=== PATIENT | female | born 1960 | race Caucasian/White ===

== ENCOUNTER → 2016-10-15 | Outpatient (CLI) | payer OTHER ==
[~2016-10-15] VITALS: Ht 157.5 cm; Wt 74.4 kg
[~2016-10-15] MED LIST: ALEVE220 MG PO; ALPRAZOLAM 0.50.5 M1 PO; AMLODIPINE BESYL5 M1 PO; AMOX TR-K CLV1 EAC4 PO; BENADRYL ALLERG25 MG PO; CLIMARA PRO PA1 EACH TP; CLONAZEPAM 0.50.5 M1 PO; CYMBALTA30 MG PO; CYMBALTA60 MG PO; DEXILANT60 MG PO; ELAVIL PO; FLONASE 0.05%50 MCG NASAL; FLONASE NS; FLUOXETINE HCL40 MG PO; HYDROCODONE-AP1 EAC6 PO; IBUPROFEN200 M1 PO; INTRAT INTRATHECA; LIPITOR 20 MG T20 M1 PO; MS CONTIN15 MG PO; NAPROSYN500 MG PO; NORTRIPTYLINE H75 M2 PO; OPANA10 MG PO; OTHER MISCELL; OXYCODON-ACETA1 EAC1 PO; OXYCODONE HCL15 MG PO; OXYCODONE-APAP1 EAC6 PO; PATANASE30.5 GM NS; PAXIL10 MG PO; PENICILLIN VK500 M1 PO; PHENERGAN 25 MG25 M1 PO; PROZAC20 MG PO; ROXICODONE15 M1; TIZANIDINE HCL4 MG PO; TRAZODONE PO; XANAX 0.5 MG0.5 M1 PO; ZANTAC 150MG T150 MG PO; ZESTORETIC 20-1 EAC1 PO; ZOCOR20 MG PO; ZPAK PO; hydromorphone IMPLANT
--- NOTE | ~2016-10-15 | HPC ---
[facility] [address] [place] [address] PAIN MANAGEMENT CONSULTATION Name: THIAGO BUCK Room #: REG EDWIN Rosendo.#: [id number] Admission: 10/15/16 Attend Phys: Maximus Schmitt MD Discharge: Date of : 56 Report #: [id number] THIS REPORT FOR: //name// CC: Maximus SPRAGUE Followup visit for management of intrathecal infusion pump chronic intractable pain. The patient returns to pain clinic today and her affect, her mood and her pain are 180 degrees from her last visit. When I last saw her 3 months ago she cried through the entire visit. We talked and I counseled her for some time. She has been having significant difficulties with family, particularly daughter, she confided yesterday that she has been in custodial and has addiction issues. The patient lives with her , but is otherwise socially isolated. She has trouble with transportation, finances and depression. She has reported to us that changes in medication have made a difference. I started her on paroxetine and it has been doubled and I think that dose is quite good right now given her improvement in mood and depression. She does not appear depressed at all today. She reports her pain is better. She does not need additional medication when using her breakthrough hydrocodone cautiously along with her pump. She takes tizanidine only at bedtime to help with muscle spasm and sleep. Paxil is now at 20 mg b.i.d., naproxen sodium p.r.n., ranitidine, fluticasone, simvastatin, amlodipine, clonazepam, estradiol, Climara patch, lisinopril, hydrochlorothiazide, ALLERGIES: None. PHYSICAL EXAMINATION: GENERAL: Her affect again is positive, pleasant. HEENT: Her eyes are sharp and clear. There has been as mentioned 180 degree change in her aspect since her last visit. VITAL SIGNS: Her blood pressure is 183/69, heart rate 72, respirations 20, oxygen saturation 98%. LUNGS: She has some mild expiratory wheezing. She does not smell of tobacco today and reports that she is significantly reduced her tobacco use. EXTREMITIES: She has significant pain in her right hip with internal and external rotation. There is positive ANALISA reproducing pain into the groin and anterior thigh. Sensation below the knee is intact. There does not appear to be radiculopathy here. Pump is in the left back as placed by Dr. Arellano and is nontender. IMPRESSION: 1. Chronic intractable pain status post laminectomy with history of radiculopathy, which is now well managed. 2. Osteoarthritis, right hip. This will be followed up by orthopedic surgery. [address] [address] PAIN MANAGEMENT CONSULTATION Name: THIAGO BUCK Room #: REG [facility] Rosendo.#: [id number] Admission: 10/15/16 Attend Phys: Maximus Schmitt MD Discharge: Date of : 56 Report #: [id number] 3. Severe depression. At last visit, I was extremely concerned and she has made a very good recovery today and I would say that she is in remission. 4. Obesity. 5. Management of intrathecal pump with refill. 6. Management of high risk opioid medication, low dose hydrocodone and supplement. PLAN: 1. Refill intrathecal infusion pump and reprogram. 2. Follow up for medication management as needed. PROCEDURE NOTE: The patient was placed in the supine position. Skin was prepped with ChloraPrep. Skin was anesthetized with 1% lidocaine and a 30 gauge needle. A 22-gauge non-coring needle was then advanced into the intrathecal pump. Old medication was removed and discarded. The pump was then refilled with medications hydromorphone 5.5, bupivacaine 7.4 per day, DEBORAH is 66, reservoir volume is 20, low reservoir alarm is 1.5, refill interval at 12/03/2016. There were no complications. Followup visit is planned in 1 month and a half. By: 1154 [id number] Maximus Schmitt MD /nt
[2016-10-15 09:06] VITALS: BP 183/69
== END ==
LOC: PAIN 06:53
DX: Z45.1 Encounter for adjustment and management of infusion pump (principal); G89.29 Other chronic pain; F32.9 Major depressive disorder, single episode, unspecified; M96.1 Postlaminectomy syndrome, not elsewhere classified; M16.11 Unilateral primary osteoarthritis, right hip; I10 Essential (primary) hypertension; F17.210 Nicotine dependence, cigarettes, uncomplicated

== ENCOUNTER → 2016-12-03 | Outpatient (CLI) | payer OTHER ==
[~2016-12-03] VITALS: Ht 160 cm; Wt 73.9 kg
--- NOTE | ~2016-12-03 | HPC ---
[facility] [place] [address] PAIN MANAGEMENT CONSULTATION Name: THIAGO BUCK Room #: REG EDWIN Robbins.#: [id number] Admission: 12/03/16 Attend Phys: Maximus Schmitt MD Discharge: Date of : 56 Report #: [id number] THIS REPORT FOR: //name// CC: Maximus SPRAGUE DATE OF SERVICE: 12/03/2016 Followup visit for refill of intrathecal infusion pump for chronic intractable back pain with radiculopathy post-laminectomy syndrome. The patient returns to pain clinic today for refill of her intrathecal infusion pump. She is currently receiving bupivacaine and hydromorphone. She is doing better, pain control seems much better and her emotional state is also much better. She was a mess a few visits ago. She is reconciling with her daughter. I have encouraged her to continue efforts quit smoking. She is down to 2-3 e-cigarettes per day right now, so she is making some progress towards quitting. I told her just to stop. Cold turkey seems to be the best way to go. She continues to follow for her gastroesophageal reflux disease and sinus symptoms. She has a primary physician, Dr. Andrade Sprague. Today, she reports that with pain medication, her pain score is 8/10. Her functional activity is adequate. She is able to maintain all of her activities of daily living including house work, cleaning, cooking. PHYSICAL EXAMINATION: Pleasant, blood pressure 141/70, heart rate 85. BMI is 28.9. She is able to ambulate independently without a cane or walking device. She does not appear to be a fall risk. Tenderness across her low back is noted, tenderness over her pump on the left is noted. She has pain in the right hip with internal and external rotation consistent with osteoarthritis. Straight leg raising is negative for radicular pain. IMPRESSION: 1. Chronic intractable back pain with radiculopathy, status post laminectomy. 2. Osteoarthritis, right hip. I believe she is scheduled to have her hip replaced and this should help a lot with her overall global pain. 3. Depression, stable. 4. Morbid obesity. 5. Tobaccoism. 6. Management of intrathecal infusion pump with refill. 7. Management of high risk medications under terms of an opioid agreement. I provided her with [place] 5/325 75 tablets per month, 1-3 tablets as needed for severe breakthrough pain. We reviewed the importance of safeguarding all medications and using her medications under direction, the terms of our agreement were also reviewed. [address] [address] PAIN MANAGEMENT CONSULTATION Name: THIAGO BUCK [id number] Admission: 12/03/16 Attend Phys: Maximus Schmitt MD Discharge: Date of : 56 Report #: [id number] PROCEDURE: Refill and reprogramming. Skin was prepped with ChloraPrep. Skin was anesthetized and a 22-gauge needle advanced into the pump. After aspirating the volume from the pump, I refilled the pump with medication and a reprogramming session was performed. I plan to see her back in the pain clinic in about 2 months. No changes in her medications. By: 1715 0005 Maximus Schmitt MD /nt
[2016-12-03 12:36] VITALS: BP 141/70
== END | disposition home or self-care (01) ==
LOC: PAIN 07:04
DX: M54.16 Radiculopathy, lumbar region (principal); M96.1 Postlaminectomy syndrome, not elsewhere classified; G89.29 Other chronic pain; M16.11 Unilateral primary osteoarthritis, right hip; F32.9 Major depressive disorder, single episode, unspecified; E66.01 Morbid (severe) obesity due to excess calories; F11.20 Opioid dependence, uncomplicated; Z68.28 Body mass index [BMI] 28.0-28.9, adult

== ENCOUNTER → 2017-01-20 | Outpatient (CLI) | payer OTHER ==
[~2017-01-20] VITALS: Ht 160 cm; Wt 76.5 kg
[2017-01-20 14:07] VITALS: BP 180/70
== END ==
LOC: PAIN 07:09
DX: Z45.1 Encounter for adjustment and management of infusion pump (principal); M96.1 Postlaminectomy syndrome, not elsewhere classified; M16.11 Unilateral primary osteoarthritis, right hip; F32.9 Major depressive disorder, single episode, unspecified; E66.01 Morbid (severe) obesity due to excess calories; Z79.899 Other long term (current) drug therapy

== ENCOUNTER → 2017-03-08 | Outpatient (CLI) | payer OTHER ==
[~2017-03-08] VITALS: Ht 157.5 cm; Wt 77.0 kg
--- NOTE | ~2017-03-08 | HPC ---
[facility] [address] [place] [address] PAIN MANAGEMENT CONSULTATION Name: THIAGO BUCK Room #: REG EDWIN Andrade#: [id number] Admission: 03/08/17 Attend Phys: Maximus Schmitt MD Discharge: Date of : 56 Report #: [id number] THIS REPORT FOR: //name// CC: Maximus SPRAGUE DATE OF SERVICE: 03/08/2017 DATE OF REGISTRATION: 03/08/2017. Followup visit for refill of intrathecal infusion pump. The patient returns to pain clinic today with her daughter. Her daughter has had issues in the past with addiction and has now been under treatment for nearly a year and came today to apologize to me in the past because she apparently diverted some of her mothers medication. Her daughter is going to [facility] and we had a long talk today about her recovery. This has definitely helped her mother. Her mother is much more stable and relaxed now that her daughter is back in her life and seems to be doing well. In no small measure this psychosocial component affects the patient's pain. She now has her daughter back and has her family back and her daughter is working two jobs as well as receiving ongoing counseling. The patient seems more at peace and able to manage her pain effectively. In the past, I have seen her. She is distraught, crying, pain is worse, she is smoking more; all of those things are better. Pain today still scored as an 8/10 with walking and activity, but is much more tolerable to her. Intrathecal pump medications were reviewed before refilling. In addition to the intrathecal pump, the patient uses Pilot 5/325 as breakthrough using less than 3 tablets a day on average, I provided her with 70 tablets per month. PHYSICAL EXAMINATION: GENERAL: She is pleasant, alert, oriented. No signs of overmedication, depression or anxiety. VITAL SIGNS: Her blood pressure is 145/79, heart rate 68, respirations 18. She is obese with a BMI of 31.0. MUSCULOSKELETAL: She moves from a sitting to standing position, walks with a waddling gait. She has pain and tenderness across her low back and into her hips. Both legs are associated with numbness and tingling and radiculopathy. She has retained a spinal cord stimulator which is no longer functioning in the right buttock, cheek and the intrathecal pump placed by Dr. Arellano is in the left paravertebral region, both are minimally tender. IMPRESSION: [facility] [address] [place] [address] PAIN MANAGEMENT CONSULTATION Name: THIAGO BUCK Room #: REG CLI [facility]#: [id number] Admission: 03/08/17 Attend Phys: Maximus Schmitt MD Discharge: Date of : 56 Report #: [id number] 1. Chronic low back pain with radiculopathy, post-laminectomy syndrome. 2. Osteoarthritis, right hip. 3. Depression, currently in remission. 4. Morbid obesity. 5. Continued use of tobacco, she was counseled. 6. Management of high risk medications under terms of an opioid agreement, this is Pilot 5/325 with an average daily of 12. 7. Management of intrathecal infusion pump with refill. Terms of our opioid agreement reviewed. Prescriptions were written for 3 months. Pump was refilled. PROCEDURE: Skin was prepped with ChloraPrep. Skin anesthetized and a 22-gauge non-coring needle advanced in the pump. Old medication was discarded. The pump was refilled with hydromorphone and bupivacaine. A reprogramming session was performed. Daily dose will be hydromorphone 5.8 and bupivacaine 7.8. Her alarm date is now 04/22/2017. Her reservoir alarm volume is 19.5. Her DEBORAH is 61 months. A copy of her programming information was provided and we will see her back in the pain clinic in about 2 months. <ELECTRONICALLY SIGNED> By: Maximus Schmitt MD 03/11/17 1351 0827 0950 Maximus Schmitt MD /nt
[2017-03-08 11:54] VITALS: BP 145/79
== END ==
LOC: PAIN 07:02
DX: Z45.1 Encounter for adjustment and management of infusion pump (principal); Z76.0 Encounter for issue of repeat prescription; M54.16 Radiculopathy, lumbar region; M54.5 Low back pain; M96.1 Postlaminectomy syndrome, not elsewhere classified; M16.11 Unilateral primary osteoarthritis, right hip; F32.9 Major depressive disorder, single episode, unspecified; E66.01 Morbid (severe) obesity due to excess calories; F17.200 Nicotine dependence, unspecified, uncomplicated; Z79.891 Long term (current) use of opiate analgesic; Z79.899 Other long term (current) drug therapy

== ENCOUNTER → 2017-04-19 | Outpatient (CLI) | payer OTHER ==
[~2017-04-19] VITALS: Ht 160 cm; Wt 78.3 kg
--- NOTE | ~2017-04-19 | HPC ---
[facility] [place] [place] [address] PAIN MANAGEMENT CONSULTATION Name: THIAGO BUCK Room #: REG EDWIN Robbins.#: [id number] Admission: 04/19/17 Attend Phys: Maximus Schmitt MD Discharge: Date of : 56 Report #: [id number] THIS REPORT FOR: //name// CC: Maximus Olivia MD DATE OF SERVICE: 04/19/2017 Followup visit for management of intrathecal infusion pump. The patient returns to pain clinic today for refill of her intrathecal infusion pump. Because of her high daily dose of hydromorphone or concentrations at 15 mg, we are seeing her at about 45-day intervals. She is doing well. Pain scores are 7, but she has positive upbeat functioning at a high level. She has some new pain in her right hip and is being evaluated for right hip replacement. She continues to smoke. I have given her counseling about that again today. PHYSICAL EXAMINATION: GENERAL: Her affect is pleasant and upbeat. Her daughter just recently got and she seems to be much happier with her renewed relationship with her daughter and her grandchildren. VITAL SIGNS: Her blood pressure is 188/71, heart rate 72, respirations 16. BMI 30.6. MUSCULOSKELETAL: She has kyphosis of the spine. She walks with a cane and bent over. She has a wobbly gait. She has localized pain and tenderness across the low back, pain in the right leg with positive straight leg raising suggesting radiculopathy. Examination of the right hip also reveals pain with flexion, extension, internal and external rotation. IMPRESSION: 1. Chronic back pain, post-laminectomy syndrome. 2. Osteoarthritis, right hip, severe. 3. Depression, improved. 4. Morbid obesity. 5. Tobacco abuse with chronic obstructive pulmonary disease. 6. Management of high risk medications under terms of an opioid agreement, a small amount supplementing her intrathecal pump. I provided her with [place] 5/325, #75 tablets per month. Safeguarding is necessary. Her daughter is an AA and we have talked openly with her daughter about making sure that she respects her mother's medication. PROCEDURE: Refill of intrathecal infusion pump. Skin was prepped with ChloraPrep. Skin anesthetized and a 22-gauge non-coring needle advanced in the pump. Old medication removed and discarded. Pump was [facility] [address] [place] [address] PAIN MANAGEMENT CONSULTATION Name: THIAGO BUCK Uma Room #: REG EDWIN Zafar#: [id number] Admission: 04/19/17 Attend Phys: Maximus Schmitt MD Discharge: Date of : 56 Report #: [id number] refilled with hydromorphone 15 mg/mL, bupivacaine 20 mg/mL. Reprogramming session was performed. The pump has 45 days with medication. We plan to see her back in the pain clinic and around that many days. By: 1616 0019 Maximus Schmitt MD /mary
[2017-04-19 12:58] VITALS: BP 188/71
== END | disposition home or self-care (01) ==
LOC: PAIN 07:29
DX: Z45.1 Encounter for adjustment and management of infusion pump (principal); M96.1 Postlaminectomy syndrome, not elsewhere classified; M16.11 Unilateral primary osteoarthritis, right hip; F32.9 Major depressive disorder, single episode, unspecified; E66.01 Morbid (severe) obesity due to excess calories; J44.9 Chronic obstructive pulmonary disease, unspecified; Z68.30 Body mass index [BMI] 30.0-30.9, adult; F17.200 Nicotine dependence, unspecified, uncomplicated

== ENCOUNTER → 2017-07-15 | Outpatient (CLI) | payer OTHER ==
[~2017-07-15] VITALS: Ht 160 cm; Wt 75.8 kg
--- NOTE | ~2017-07-15 | HPC ---
[facility] [address] [place] [address] PAIN MANAGEMENT CONSULTATION Name: THIAGO BUCK Room #: REG EDWIN Andrade#: [id number] Admission: 07/15/17 Attend Phys: Maximus Schmitt MD Discharge: Date of : 56 Report #: [id number] THIS REPORT FOR: //name// CC: Maximus SPRAGUE DATE OF SERVICE: 07/15/2017 Followup visit for management of intrathecal infusion pump. The patient returns to the pain clinic today with her daughter. She is here today for refill of her intrathecal infusion pump. Pain is adequately controlled currently with her infusion pump. She scores her pain today as a 7/10. This is an adequate score for her. She has been able to interact with her family and describes improvement in function. Pain is mostly in her lumbar spine, but she has some burning sensation into her legs as well. There are some features of radiculopathy. She continues to smoke. She was counseled about this today. She denies any osteoarthritis in other joints. Most of her pain is lumbosacral. In addition to her intrathecal medicines, I provided her with 60 hydrocodone 5/325 tablets for a total of 10 morphine milligram equivalents a day. CDC guidelines were reviewed. Her opioid agreement was reviewed. Periodic urine drug screening or buccal testing has been done in the past. I will continue this at my discretion. She has reduced her use of opioids over the course of the last 2 years. PHYSICAL EXAMINATION: GENERAL: She is pleasant, alert and oriented. No signs of overmedication. She is not depressed today and seems positive throughout the holidays, reports her daughter. VITAL SIGNS: Her blood pressure is 128/85, heart rate is 90 and respirations are 16. BACK: She has tenderness across her low back. Her pump is in the left lower quadrant. She has some pain noted in the right hip, which may be osteoarthritis. This should be reevaluated. Her BMI is 38.5 and she was counseled regarding weight loss. IMPRESSION: 1. Chronic back pain, post-laminectomy syndrome. 2. Probable osteoarthritis, right hip. 3. Depression, in remission. 4. Morbid obesity. 5. Tobacco abuse. 6. Management of intrathecal infusion pump. [facility] [address] [place] [address] PAIN MANAGEMENT CONSULTATION Name: THIAGO BUCKTH [facility] #: [facility] [id number] Admission: 07/15/17 Attend Phys: Maximus Schmitt MD Discharge: Date of : 56 Report #: [id number] PROCEDURE: Refill and reprogramming intrathecal pump. DESCRIPTION OF PROCEDURE: Skin was prepped with ChloraPrep. Skin anesthetized. A 22-gauge non-coring needle advanced in the pump. Old medication removed and discarded. Pump is refilled. Reprogramming session was performed and she was discharged. A copy of her programming information provided. A followup visit is planned in 3 months. By: 1621 [id number] MD ana Hill
[2017-07-15 12:46] VITALS: BP 178/80
== END | disposition home or self-care (01) ==
LOC: PAIN 06:48
DX: Z45.1 Encounter for adjustment and management of infusion pump (principal); M54.5 Low back pain; G89.29 Other chronic pain; M96.1 Postlaminectomy syndrome, not elsewhere classified; F32.89 Other specified depressive episodes; E66.01 Morbid (severe) obesity due to excess calories; F17.210 Nicotine dependence, cigarettes, uncomplicated; Z79.891 Long term (current) use of opiate analgesic; Z79.899 Other long term (current) drug therapy; Z68.38 Body mass index [BMI] 38.0-38.9, adult

== ENCOUNTER → 2017-09-06 | Outpatient (CLI) | payer OTHER ==
[~2017-09-06] VITALS: Ht 160 cm; Wt 76.2 kg
[~2017-09-06] MED LIST changes: +NORVASC5 MG PO
--- NOTE | ~2017-09-06 | HPC ---
[facility] [place] [address] PAIN MANAGEMENT CONSULTATION Name: THIAGO BUCK Room #: REG EDWIN Rosendo.#: [id number] Admission: 09/06/17 Attend Phys: Maximus Schmitt MD Discharge: Date of : 56 Report #: [id number] THIS REPORT FOR: //name// CC: Maximus SPRAGUE DATE OF SERVICE: 09/06/2017 Followup visit for low back pain with radiculopathy and management of intrathecal infusion pump. This is a followup visit for the patient who is here today for refill of her intrathecal infusion pump. Her impact pain score is 59. She is at moderate risk for opioid misuse or abuse. I provided her with small amount of systemic opioids under terms of written agreement, which have been reviewed today. She continues to smoke. She was counseled once again. She is a fall risk. She has osteoarthritis in her right hip. This continues to bother her as much as her back does. She is overweight and needs to lose weight. We have discussed this as well. She is here today with her daughter. They have patched up their differences. She seems to be in better spirits. PHYSICAL EXAMINATION: Pleasant female and morbidly obese. She moves from sitting to standing position and walks with a waddling gait. Her blood pressure is 156/68, heart rate is 74 and respirations 16. BMI is 29.8. She has tenderness across her back where she has her scar from previous surgery and her intrathecal pump placed by Dr. Arellano originally is in the lower lumbar region. It is nontender at this time. Straight leg raising is positive. IMPRESSION: 1. Chronic intractable back pain, post-laminectomy syndrome. She has bilateral lumbar radiculopathy. 2. Obesity. 3. Hypertension. 4. Depression. 5. Management of high risk medications with small supplement of oxycodone 7.5 twice a day to 3 times a day as needed. 6. Management of intrathecal infusion pump with refill. PROCEDURE: Skin was prepped with ChloraPrep and anesthetized. A 22-gauge non-coring needle advanced in the pump. Old medication removed and discarded. Pump refilled with a combination of hydromorphone and bupivacaine and [facility] [address] [place] [address] PAIN MANAGEMENT CONSULTATION Name: SALINASTHIAGO MUKESH Room #: REG [facility].#: [id number] Admission: 09/06/17 Attend Phys: Maximus Schmitt MD Discharge: Date of : 56 Report #: [id number] reprogramming session was performed. Her new reservoir alarm date is 10/29/2017. She has 55 months remaining on the battery of this pump. <ELECTRONICALLY SIGNED> By: Maximus Schmitt MD 09/15/17 1640 1512 0049 Maximus Schmitt MD /nt
[2017-09-06 12:43] VITALS: BP 156/68
== END | disposition home or self-care (01) ==
LOC: PAIN 07:20
DX: Z45.1 Encounter for adjustment and management of infusion pump (principal); M16.11 Unilateral primary osteoarthritis, right hip; G89.29 Other chronic pain; E66.01 Morbid (severe) obesity due to excess calories; I10 Essential (primary) hypertension; F32.9 Major depressive disorder, single episode, unspecified; F17.210 Nicotine dependence, cigarettes, uncomplicated

== ENCOUNTER → 2017-10-28 | Outpatient (CLI) | payer OTHER ==
[~2017-10-28] VITALS: Ht 160 cm; Wt 78.5 kg
--- NOTE | ~2017-10-28 | HPC ---
[facility] [address] [place] [address] PAIN MANAGEMENT CONSULTATION Name: THIAGO BUCK Room #: REG EDWIN Rosendo.#: [id number] Admission: 10/28/17 Attend Phys: Maximus Schmitt MD Discharge: Date of : 56 Report #: [id number] THIS REPORT FOR: //name// CC: Maximus Olivia DATE OF SERVICE: 10/28/2017 Followup visit for low back pain with radiculopathy and intrathecal pump management. The patient returns back to the clinic today for refill of her intrathecal infusion pump with reprogramming. She receives hydromorphone and bupivacaine. She is doing reasonably well. She is here today with her daughter who is about 8 months . Her intrathecal pump is in her back. Current pump still has 53 months remaining on its battery life. Her reservoir volume is 20. We will continue her hydromorphone 6.4 and bupivacaine 6.4 mg per day with no changes. I have reviewed all her other medications. She is on an opioid agreement with our clinic. I provide for her in addition to her intrathecal medications, a small amount of hydrocodone for breakthrough. I allow her to take 2-3 tablets per day of hydrocodone 5/325. Her average daily dose of hydrocodone 12 mg or about 12 morphine milligram equivalents. She understands the importance of safeguarding. She understands the CDC guidelines. She understands that she must be cautious about her storage of medication. She has been on time for prescriptions with no misuse or abuse. PHYSICAL EXAMINATION: She is pleasant without signs of depression or anxiety. She is able to move independently from sitting to standing position. Her gait is stable. Her blood pressure today is 156/71, heart rate 85 and respirations 16. She has mild tenderness over the pump in the left back. She is morbidly obese. BMI is over 30. Weight loss has been discussed. She has a scar from previous surgery, which is tender. She has bilateral straight leg raising discomfort in the lower extremities. IMPRESSION: 1. Chronic intractable low back pain, post-laminectomy syndrome. 2. Morbid obesity. 3. Hypertension. 4. Depression, currently in remission. 5. Management of intrathecal infusion pump with refill and reprogramming. 6. Management of hydrocodone at 5 mg 2-3 tablets per day, a total of 75 provided per month. [address] [address] PAIN MANAGEMENT CONSULTATION Name: BUCKTHIAGOTH Room #: REG EDWIN Rosendo.#: [id number] Admission: 10/28/17 Attend Phys: Maximus Schmitt MD Discharge: Date of : 56 Report #: [id number] Followup visit planned in 3 months. PROCEDURE: Skin prepped with ChloraPrep and anesthetized. A 22-gauge non-coring needle advanced in the pump. Old medication removed and discarded. Pump refilled with medication and a reprogramming session performed. Programming information provided to the patient. She will be seen back in the pain clinic in about 2-3 months. By: [place]: 10/28/17 1728 0148 Maximus Schmitt MD /nt
[2017-10-28 12:53] VITALS: BP 156/71
== END | disposition home or self-care (01) ==
LOC: PAIN 07:22
DX: Z45.1 Encounter for adjustment and management of infusion pump (principal); M54.16 Radiculopathy, lumbar region; M96.1 Postlaminectomy syndrome, not elsewhere classified; I10 Essential (primary) hypertension; F32.4 Major depressive disorder, single episode, in partial remission; F17.200 Nicotine dependence, unspecified, uncomplicated; Z68.30 Body mass index [BMI] 30.0-30.9, adult; Z79.891 Long term (current) use of opiate analgesic; Z79.899 Other long term (current) drug therapy; Z98.890 Other specified postprocedural states

== ENCOUNTER → 2017-12-20 | Outpatient (CLI) | payer OTHER ==
[~2017-12-20] VITALS: Ht 160 cm; Wt 77.1 kg
--- NOTE | ~2017-12-20 | HPC ---
[facility] [place] [address] PAIN MANAGEMENT CONSULTATION Name: THIAGO BUCK Room #: REG [facility] Rosendo.#: [id number] Admission: 12/20/17 Attend Phys: Maximus Schmitt MD Discharge: Date of : 56 Report #: [id number] THIS REPORT FOR: //name// CC: Physician staff Maximus SPRAGUE DATE OF SERVICE: 12/20/2017 Followup visit for management of intrathecal infusion pump. The patient is here today with her daughter for refill of her intrathecal infusion pump. She is doing reasonably well without significant change in the refill interval. She continues to complain of pain mostly in her low back and radiating into the legs bilaterally. Pain score is a 7, although her functional activity is pretty good. She seems upbeat and positive and seems to be managing her pain reasonably. We reviewed PQRS. She does not have a lot of active pain from her osteoarthritis. Her BMI is 30. She is on no blood thinner. She is on an opioid contract agreement for a small amount of additional systemic opioid provided in addition to her intrathecal medication. We have completed functional assessment tools and risk tools; she is at low risk for addiction. She does smoke and she was counseled again today; she is down to 3-4 cigarettes a day. PHYSICAL EXAMINATION: She is pleasant, alert and oriented. Her pump is in her back. She moves easily from sitting to standing position, but walks with a [id number] gait. She has some antalgic features. She does not appear to be a fall risk and has not fallen in the last 3 months. Her blood pressure is 180/73, heart rate 66, respirations 14. BMI 30.7. Pump in the back on the left side is nontender. IMPRESSION: 1. Chronic intractable low back pain, post-laminectomy syndrome. 2. Management of intrathecal infusion pump. 3. Management of opioid medication for supplement at low dose with a total of 10-15 MME of hydrocodone 5 mg 2-3 tablets per day. 4. Depression, in remission. 5. Hypertension. PROCEDURE: Refill and reprogramming of intrathecal infusion pump. DESCRIPTION OF PROCEDURE: With skin prepped with ChloraPrep, skin was anesthetized, a 22-gauge non-coring needle advanced in the pump. Old medication removed and discarded. The pump was refilled with a total of 19.5 mL of [facility] [address] [place] [address] PAIN MANAGEMENT CONSULTATION Name: THIAGO BUCK Room #: REG ADÁNJuan Zafar#: [id number] Admission: 12/20/17 Attend Phys: Maximus Schmitt MD Discharge: Date of : 56 Report #: [id number] hydromorphone and bupivacaine. Low reservoir alarm date is now 02/11/2018. During the time that I was refilling her pump, I cautioned her about the possibility of pocket fill and gave her instructions on how best to manage any oversedation in the immediate hours following refill. Incidence of this in our practice is less than 1 in 300-500 and we have had no critical events that have resulted in lasting sequelae in our 15-year practice. Questions were answered. She was given a prescription for hydrocodone in addition to her refill today, a total of 75 tablets to carry her through to her next appointment. She is discharged in the care of her daughter. By: [id number] Maximus Schmitt MD /nt
[2017-12-20 13:27] VITALS: BP 180/73
== END | disposition home or self-care (01) ==
LOC: PAIN 06:57
DX: Z45.1 Encounter for adjustment and management of infusion pump (principal); M54.5 Low back pain; G89.29 Other chronic pain; M96.1 Postlaminectomy syndrome, not elsewhere classified; I10 Essential (primary) hypertension; M19.90 Unspecified osteoarthritis, unspecified site; F32.5 Major depressive disorder, single episode, in full remission; F17.210 Nicotine dependence, cigarettes, uncomplicated; Z79.891 Long term (current) use of opiate analgesic; Z79.899 Other long term (current) drug therapy; Z98.890 Other specified postprocedural states; Z96.641 Presence of right artificial hip joint

== ENCOUNTER → 2018-02-10 | Outpatient (CLI) | payer OTHER ==
[~2018-02-10] VITALS: Ht 160 cm; Wt 77.2 kg
--- NOTE | ~2018-02-10 | HPC ---
[facility] [address] [place] [address] PAIN MANAGEMENT CONSULTATION Name: THIAGO BUCK Room #: REG Juan MLuis Carlos.#: [id number] Admission: 02/10/18 Attend Phys: Maximus Schmitt MD Discharge: Date of : 56 Report #: [id number] THIS REPORT FOR: //name// CC: Physician staff Maximus Olivia MD DATE OF SERVICE: 02/10/2018 Followup visit for management of intrathecal infusion pump. The patient returns to clinic today and she is with her 3-week old granddaughter and daughter ! She is still struggling a bit with depression, but her pain is okay with her current regimen of intrathecal medication and a small amount of breakthrough oral medication, which she uses cautiously. She uses tizanidine to help with sleep and muscle spasm. She also has sleep deprivation. She sleeps poorly at night, getting maybe 1 hour at a time. She continues to smoke cigarettes. She is not exercising. We talked about wellness behaviors which include the discontinuation of the 3-4 cigarettes she smokes a day. I have also talked to her about turning off all of her electrical devices at night early on and going through a sleep hygiene program, so that she is able to get some routine and a circadian rhythm would develop. We talked about the importance of light. As noted, it stimulates the pineal gland, and the release of melatonin in the absence of light is critical to developing the circadian release. Her depression has been in remission and she has intermittent depression. Much of this may improve with sleep and wellness behaviors which were reviewed in detail. PHYSICAL EXAMINATION: GENERAL: Today, she is mildly depressed. VITAL SIGNS: Her blood pressure is 169/90, heart rate 81. MUSCULOSKELETAL: She moves from sitting to standing position, walks with antalgic features to her gait. She has limited range of motion of her lumbar spine and localized tenderness. Sensation is intact throughout the lower extremities. She has generalized weakness with her gait, moving side to side and is a fall risk. Her BMI is above 30. We talked about weight loss as well as smoking cessation. I reviewed our opioid agreement. I allow her a small amount of breakthrough medication orally rather than increasing her pump, maximum daily use of hydrocodone is 5/325 three times for a total of [address] [address] PAIN MANAGEMENT CONSULTATION Name: THIAGO BUCKBETH Room #: REG [facility] Rosendo.#: [id number] Admission: 02/10/18 Attend Phys: Maximus Schmitt MD Discharge: Date of : 56 Report #: [id number] Safeguarding medications is important. I spoke with her daughter frankly about this as she has had a problem with addiction in the past. A followup visit is scheduled in the pain clinic in 2 months. The patient may be seeking someone else to manage her pump in [place]. I have no problems if we can identify someone who will accept her as a patient with Medicare. By: 1301 [id number] Maximus Schmitt MD /mary
[2018-02-10 10:14] VITALS: BP 169/60
== END | disposition home or self-care (01) ==
LOC: PAIN 06:15
DX: Z45.1 Encounter for adjustment and management of infusion pump (principal); M54.5 Low back pain; G89.29 Other chronic pain; F17.210 Nicotine dependence, cigarettes, uncomplicated; Z96.641 Presence of right artificial hip joint; Z98.890 Other specified postprocedural states; Z79.899 Other long term (current) drug therapy

== ENCOUNTER → 2018-04-11 | Outpatient (CLI) | payer OTHER ==
[~2018-04-11] VITALS: Ht 160 cm; Wt 81.2 kg
--- NOTE | ~2018-04-11 | HPC ---
[facility] [place] [address] [place] [address] PAIN MANAGEMENT CONSULTATION Name: THIAGO BUCK Room #: REG ADÁNJuan Zafar#: [id number] Admission: 04/11/18 Attend Phys: Maximus Schmitt MD Discharge: Date of : 56 Report #: [id number] THIS REPORT FOR: //name// CC: Physician staff Maximus SPRAGUE DATE OF SERVICE: 04/11/2018 Followup visit for management of intrathecal infusion pump. The patient is here today for refill of her intrathecal pump. There have been no specific changes. She receives hydromorphone and bupivacaine. I have been providing her with breakthrough medication to utilize in addition to her intrathecal pump. She would like to increase that; however, I would prefer that we increase her intrathecal pump rather than provide her with oral medication at a higher dose. PQRS review was completed. Her pain intensity is a 9. She denies osteoarthritis. She is morbidly obese with a BMI of 31.7. Weight loss strategies discussed. She has a history of hypertension and is under treatment. Her systolic is 166, diastolic is 64. She is a fall risk and needs help with walking. She has not fallen, however, in the last 3 months. Fortunately, she is on no blood thinners. She is on an opioid agreement, which was signed in November 2015. She has completed an opioid risk tool with moderate to low risk of addiction. Her functional assessment tool is 59/70. She continues to smoke 2 cigarettes a day and was counseled for 3-5 minutes regarding the evils of tobacco and its role in the continuation of chronic pain. PHYSICAL EXAMINATION: Also demonstrates a bruise on her forehead where she apparently ran into a cabinet. IMPRESSION: 1. Chronic intractable back pain, post-laminectomy syndrome. 2. Management of intrathecal infusion pump with refill and reprogramming session. DESCRIPTION OF PROCEDURE: Skin was prepped with ChloraPrep and the skin was anesthetized. A 22-gauge non-coring needle was advanced into the intrathecal pump. Old medication removed and discarded. The pump was refilled with a combination of hydromorphone, bupivacaine and a reprogramming session was performed. I did increase her daily infusion to 7.1 mg of hydromorphone and bupivacaine up from 6.3. Her new reservoir alarm date is 05/29/2018. She was [address] [address] PAIN MANAGEMENT CONSULTATION Name: THIAGO BUCK Room #: REG CLJuan Zafar#: [id number] Admission: 04/11/18 Attend Phys: Maximus Schmitt MD Discharge: Date of : 56 Report #: [id number] given a prescription for hydrocodone 75 tablets a month. Her MME is 12.5. Release date prescriptions were provided also for the 4- and 8-week interval. By: 1528 06 Maximus Schmitt MD /nt
[2018-04-11 09:54] VITALS: BP 166/64
== END | disposition home or self-care (01) ==
LOC: PAIN 06:34
DX: Z45.1 Encounter for adjustment and management of infusion pump (principal); M54.5 Low back pain; M96.1 Postlaminectomy syndrome, not elsewhere classified; G89.29 Other chronic pain; F17.210 Nicotine dependence, cigarettes, uncomplicated; Z79.891 Long term (current) use of opiate analgesic; Z79.899 Other long term (current) drug therapy

== ENCOUNTER → 2018-05-26 | Outpatient (CLI) | payer OTHER ==
[~2018-05-26] VITALS: Ht 160 cm; Wt 84.4 kg
[~2018-05-26] MED LIST changes: +ZANAFLEX4 MG PO
--- NOTE | ~2018-05-26 | HPC ---
[facility] [address] [place] [address] PAIN MANAGEMENT CONSULTATION Name: THIAGO BUCK Room #: REG [facility].#: [id number] Admission: 05/26/18 Attend Phys: Susana Dang Discharge: Date of : 56 Report #: [id number] THIS REPORT FOR: //name// CC: Susana Dang Physician staff HAILEY SRPAGUE DATE OF SERVICE: 05/26/2018 The patient is here today for a followup visit for her intrathecal pump refill for her chronic intractable back pain, post-laminectomy syndrome. HISTORY OF PRESENT ILLNESS: The patient is here for a refill of her intrathecal pump that she has implanted for her low back pain and her bilateral leg pain. She tells me her pain score is 8/10 today, worse with activity. It is a burning, sharp pain better with heat, cold and compresses. Her daughter is here present with her today. Her intrathecal pump contains bupivacaine and hydromorphone. ALLERGIES: No known drug allergies. MEDICATIONS: Current list of medications: Hydrocodone 5/325 one tablet 2-3 times a day for pain, tizanidine 4 mg at bedtime, Paxil 10 mg daily, Prozac 40 mg daily, Zantac 150 mg as needed, ibuprofen 200 mg as needed, Flonase, simvastatin 20 mg daily, Norvasc 5 mg daily, Benadryl as needed, clonazepam 0.5 twice a day, lisinopril/hydrochlorothiazide 20/25 one tablet daily. The patient's PQRS: 1. The patient denies osteoarthritis and rheumatoid arthritis. 2. Her height is 5 feet 3 inches, weight is 186. BMI is 33.0. 3. Vital signs 211/73, pulse is 76, respirations 16 and oxygen sat is 97%. 4. Pain score is 8/10. 5. Denies dizziness. She uses a cane for walking and standing. She has not fallen in the last 3 months. 6. Denies blood thinners. 7. She has history of hypertension. 8. Opioid therapy is greater than 6 weeks. Therefore, an opioid signed contract is on the chart. 9. Her risk assessment tool is low and her functional assessment is 59/70. 10. Denies recreational drug use. She does smoke cigarettes about a half a pack a day and does not drink alcohol. PHYSICAL EXAMINATION: GENERAL: Today, the patient is alert and oriented and appears slightly depressed. VITAL SIGNS: Her blood pressure is elevated at 211/73 and heart rate is 76. [address] [address] PAIN MANAGEMENT CONSULTATION Name: THIAGO BUCK Room #: REG [facility].#: [id number] Admission: 05/26/18 Attend Phys: Susana Dang Discharge: Date of : 56 Report #: [id number] She moves from sitting to standing. Walks with antalgic gait features and has limited range of motion in her lumbar spine. Some tenderness in her lower back. Generalized weakness in her gait also. IMPRESSION: 1. Chronic intractable back pain, post-laminectomy syndrome, 2. Management of intrathecal infusion pump with refill and reprogramming session. DESCRIPTION OF PROCEDURE: The skin was prepped with ChloraPrep and the skin was palpated for appropriate pump location. A 22 non-coring needle was advanced into the intrathecal pump by Dr. Maximus Schmitt after attempt by nurse was unsuccessful. Old medication was removed and discarded. The pump was refilled with a combination of hydromorphone, bupivacaine and reprogramming session was performed. Her current daily dose of bupivacaine is 7.188 mg per day and hydromorphone is 7.188 mg per day. Her new reservoir alarm date is 07/13. The patient tolerated this procedure without difficulty. An appointment will be made for her refill on 07/07 of her intrathecal pump. PLAN: 1. The patient's intrathecal pump was refilled as above. No increase was done today. The patient had had an increase in her intrathecal pump medicines in March. 2. The patient given a script for tizanidine 4 mg 1 tablet twice a day, #60 with 3 additional refills. 3. We thought the patient may need a refill of her hydrocodone to get her to the next pump refill. The patient tells me that she does have one prescription left at home. According to the chart, she was given scripts on 04/11/2018 to fill on 04/11/2018, 05/11/2018 and 06/11/2018, so therefore if she fills her current script at home, the 8-week release she will fill that the end of this month and should have enough medicines to last until her next appointment. Daughter present in room and stating to me that the patient only gets 25 days out of her scripts and that she is needing more medicine. The patient verbalizes to me that she takes 2 tablets a day, occasionally 3 and that the medicines that Dr. Schmitt has been giving her has been 75 pills and that has been a month supply for her. The daughter again is stating that it is only 25 days. No scripts will be given today due to the fact that Dr. Schmitt has been writing 2 pills a day up to 3, the lowest most effective dose and the patient is agreeable with this regimen. The patient will have enough medicines to last into her next pump refill. 4. The patient was given an appointment for 07/07/[address] Maximus Schmitt for her intrathecal pump fill. At that time, we will refill her narcotics. [facility] [address] [place] [address] PAIN MANAGEMENT CONSULTATION Name: HEBERTHIAGO MUKESH [facility] #: [facility] [id number] Admission: 05/26/18 Attend Phys: Susana Dang Discharge: Date of : 56 Report #: [id number] patient is agreeable with this plan of care. 5. The patient seen in collaboration today with Dr. Maximus Schmitt. <ELECTRONICALLY SIGNED> By: Susana Dang 05/30/18 0724 [id number] [id number] Susana Dang /nt
[2018-05-26 11:16] VITALS: BP 211/73
== END | disposition home or self-care (01) ==
LOC: PAIN 06:20
DX: Z45.1 Encounter for adjustment and management of infusion pump (principal); M54.9 Dorsalgia, unspecified; G89.29 Other chronic pain; M96.1 Postlaminectomy syndrome, not elsewhere classified; F17.210 Nicotine dependence, cigarettes, uncomplicated; Z79.899 Other long term (current) drug therapy; Z79.891 Long term (current) use of opiate analgesic

== ENCOUNTER → 2018-07-08 | Outpatient (CLI) | payer OTHER ==
[~2018-07-08] VITALS: Ht 160 cm; Wt 86.2 kg
--- NOTE | ~2018-07-08 | HPC ---
[facility] [address] [place] [address] PAIN MANAGEMENT CONSULTATION Name: THIAGO BUCK Room #: REG EDWIN Andrade#: [id number] Admission: 07/08/18 Attend Phys: Maximus Schmitt MD Discharge: Date of : 56 Report #: [id number] THIS REPORT FOR: //name// CC: Physician staff Maximus SPRAGUE DATE OF SERVICE: 07/08/2018 CHIEF COMPLAINT: Chronic low back pain with radiculopathy, post-laminectomy syndrome. The patient returns to clinic today for refill of her intrathecal infusion pump. Her pump fills lasts her roughly 50 days. She is at a high dose of hydromorphone and bupivacaine. She would like additional pain relief. We have recently increased her pump. I provided with modest amount of oral opioid medication to avoid high dose opioid therapy in the intrathecal pump, which can lead to an intrathecal granuloma. PQRS REVIEW: She is morbidly obese with a BMI of 33. She has no history of osteoarthritis, but complains of radicular pain. Blood pressure 173/67. She remains hypertensive. She should follow with primary care physician and we have discussed this on previous visits. Heart rate is 67. Pain score today is 8/10. She has not fallen in the last 3 months and is not considered a fall risk. She is on no blood thinners. She has a history of hypertension and needs attention. She is on an opioid agreement, which has been signed and reviewed. Her opioid risk assessment tool is low and her functional assessment tool remains high at about 60/70. She denies alcohol, but continues to smoke a small amount, was counseled. PHYSICAL EXAMINATION: She has depressed affect. Vital signs as noted. She moves from sitting to standing position, walks with antalgic features. Tenderness across her low back as noted. She has bilateral straight leg raising pain, worse on the right. IMPRESSION: 1. Chronic low back pain, post-laminectomy syndrome. 2. Management of intrathecal infusion pump with refill and reprogramming. PROCEDURE: Skin was prepped with ChloraPrep and anesthetized. A 22-gauge non-coring needle advanced in the pump. Old medication removed and discarded per protocol. Pump was refilled with hydromorphone and bupivacaine combination of medication and a reprogramming session was performed leaving her medication at its current rate of hydromorphone 7.18 and bupivacaine 7.18 per day. Pump refill is scheduled before 08/27/2018 and her DEBORAH is 4-[address] [address] PAIN MANAGEMENT CONSULTATION Name: THIAGO BUCK Room #: REG [facility].#: [id number] Admission: 07/08/18 Attend Phys: Maximus Schmitt MD Discharge: Date of : 56 Report #: [id number] I did provide her with additional medication per terms of our written opioid agreement. Reviewed her responsibilities in safeguarding these medications. Her MME is 15. By: 1437 2209 Maximus Schmitt MD /mary
[2018-07-08 08:27] VITALS: BP 173/67
== END | disposition home or self-care (01) ==
LOC: PAIN 07-07 08:43
DX: Z45.1 Encounter for adjustment and management of infusion pump (principal); M54.10 Radiculopathy, site unspecified; M54.5 Low back pain; M96.1 Postlaminectomy syndrome, not elsewhere classified; E66.01 Morbid (severe) obesity due to excess calories; I10 Essential (primary) hypertension; G89.29 Other chronic pain; F17.210 Nicotine dependence, cigarettes, uncomplicated; Z68.33 Body mass index [BMI] 33.0-33.9, adult; Z79.899 Other long term (current) drug therapy; Z79.891 Long term (current) use of opiate analgesic

== ENCOUNTER → 2018-08-26 | Outpatient (CLI) | payer OTHER ==
[~2018-08-26] VITALS: Ht 160 cm; Wt 86.6 kg
[~2018-08-26] MED LIST changes: +ZANAFLEX4 M2 PO
[2018-08-26 11:28] VITALS: BP 196/88
--- NOTE | 2018-08-26 11:29 | NUR ---
Pain Clinic Assessment: 1. History of Osteoarthritis: Not Applicable History of Rheumatoid Arthritis: Not Applicable 2. Height: 5 ft. 3 in. 160.0 cm. Weight: 191.0 lb. oz. 86.637 kg. Patient's BMI: 33.8 3. Vital Signs: BP: 196/88 Pulse: 84 Resp: 18 Temp: 02 Sat: 98 ECG Mon: 4. Pain Intensity: 7 5. Fall Risk: Dizziness: N Needs help standing or walking: Y Fallen in the last 3 months: N Fall risk comments: USES CANE 6. Patient on Blood Thinner: None 7. History of Hypertension: Y 8. Opioid Therapy greater than 6 weeks: Y Opiate Contract Signed: 12/03/15 9. Risk Assessment Tool Provided: Opioid Risk Tool 10. Functional Assessment Tool: / 11. Recreational Drug Use: Never Drug Type: Tobacco Use: Current Every Day Smoker Tobacco Type: Amount or Packs/day: How Many Years: Alcohol Use: No Frequency: Quant:
--- NOTE | 2018-08-29 12:41 | HPC ---
[facility] [place] [address] PAIN MANAGEMENT CONSULTATION Name: THIAGO BUCK Room #: REG [facility] M..#: [id number] Admission: 08/26/18 Attend Phys: Susana Dang Discharge: Date of : 56 Report #: [id number] THIS REPORT FOR: //name// CC: Susana Dang Physician staff HAILEY SPRAGUE DATE OF SERVICE: 08/26/2018 CHIEF COMPLAINT: Chronic low back pain with radiculopathy and post-laminectomy syndrome. HISTORY OF PRESENT ILLNESS: The patient returns to the pain clinic today for refill of her intrathecal pump and medication management. She tells me that she is overall doing quite well. She has complained of low back pain and leg pain, but her medications and her pump do help her. Activity makes it worse as well as standing and walking. She tells me she takes an average of 2 pain pills a day, sometimes 1, sometimes 3, has been in an average would be 3 of her hydrocodone. She gets her intrathecal pump filled about every 2 months. ALLERGIES: No known drug allergies. MEDICATIONS: Current list of medications: Hydrocodone 5/325 up to 3 times a day, tizanidine 4 mg 2 a day, Paxil 10 mg daily, Prozac 40 mg daily, Zantac 150 mg daily, ibuprofen 200 mg as needed, Flonase as needed, Zocor 20 mg daily, Norvasc 5 mg daily, Benadryl 25 mg as needed, clonazepam 0.5 mg b.i.d. and lisinopril/hydrochlorothiazide 25/20 one tablet daily. PQRS: 1. She denies history of osteoarthritis or rheumatoid arthritis. 2. Height is 5 feet 3 inches, weight is 191 and BMI is 33.8. 3. Vital signs: Blood pressure 196/88, pulse is 84, respirations 18 and oxygen sat 98. 4. Pain score is 7/10. 5. Fall risk. Denies dizziness. Does not need help walking or standing. Does use a cane or a walker. Has not fallen in the last 3 months. 6. She is not on any blood thinners and does take antihypertensive medicines. 7. Opiate therapies greater than 6 weeks; therefore, an opioid signed contract is on the chart. 8. Risk assessment tool is low. Her functional assessment is 59/70. 9. Recreational drug use, she denies. She is a current smoker and does not drink alcohol. We did check the prescription monitoring system. The patient is filling appropriately for her medications. PHYSICAL EXAMINATION: GENERAL: The patient is alert and orientated, appears slightly depressed today. [address] [address] PAIN MANAGEMENT CONSULTATION Name: BUCKTHIAGOGavino LOPEZMUKESH Room #: REG Juan Morgan.Anjana.#: [id number] Admission: 08/26/18 Attend Phys: Susana aDng Discharge: Date of : 56 Report #: [id number] VITAL SIGNS: Blood pressure 196/88, pulse is 84, respirations 18 and oxygen sat is 98. Again, her blood pressure has been elevated and continues to be on every visit. We reminded her to get that checked out by her primary care doctor. MUSCULOSKELETAL: The patient moves from sitting to standing. Walks with an antalgic gait. She has tenderness across her low back. Scars present along her back. Intrathecal pump is located in her lower back. ASSESSMENT: 1. Chronic low back pain, post-laminectomy syndrome. 2. Management of intrathecal infusion pump refill and reprogramming. PROCEDURE: Skin was prepped with ChloraPrep and anesthetized. A 22-gauge non-coring needle was advanced into the pump by currently full registered nurse. Old medication was removed and discarded per protocol. The pump was refilled with hydromorphone and bupivacaine of 20 mg of both medications. No changes in the current settings. Her current daily setting is 7.188 mg per day of hydromorphone and of bupivacaine. The patient's alarm date will be 10/13/2018. The patient was filled using the barbiture and the patient tolerated the procedure without any difficulty. She will be set for an appointment before October 13 for a refill of her intrathecal pump. 3.Scripts given to the patient today for her opioids of hydrocodone 5/325, quantity is 75 tablets given a script for today and again in 4 weeks. Second medication is tizanidine 4 mg, the patient is to take one to two tablets at bedtime, quantity 60 with 2 additional refills. 4. The patient verbalizes understanding and has no pain from her pump refill today. The patient was discharged with her family who are present at her appointment today. 5. Pt seen today in collaboration with Dr. Maximus Schmitt. <ELECTRONICALLY SIGNED> By: Susana Dang 08/29/18 1241 [id number] Susana Dang /mary
== END | disposition home or self-care (01) ==
LOC: PAIN 07:33
DX: Z45.1 Encounter for adjustment and management of infusion pump (principal); G89.29 Other chronic pain; M96.1 Postlaminectomy syndrome, not elsewhere classified; M54.16 Radiculopathy, lumbar region; F17.210 Nicotine dependence, cigarettes, uncomplicated; Z79.899 Other long term (current) drug therapy

== ENCOUNTER → 2018-10-13 | Outpatient (CLI) | payer OTHER ==
[~2018-10-13] VITALS: Ht 160 cm; Wt 89.4 kg
--- NOTE | ~2018-10-13 | HPC ---
[facility] [address] [place] [address] PAIN MANAGEMENT CONSULTATION Name: THIAGO BUCK Room #: REG EDWIN MorganKeatonAnjana.#: [id number] Admission: 10/13/18 ������������������ Attend Phys: Maximus Schmitt MD Discharge: ������������������ Date of : 56 Report #: [id number] THIS REPORT FOR: //name// CC: Physician staff Maximus Olivia MD DATE OF SERVICE: 10/13/2018 CHIEF COMPLAINT: Followup visit for management of chronic low back pain with radiculopathy, post-laminectomy syndrome. Management of intrathecal infusion pump and opioid medications under terms of written opioid agreement. The patient is here today in the clinic for refill of her intrathecal infusion pump. She has hydromorphone and bupivacaine infusing. I have agreed today that we will refill her pump and also her medications. She is grateful for the additional relief she gets from a small amount of hydrocodone. I provided with 75 tablets of hydrocodone 5/325 mg pump refill. Medications are taken only when the pain becomes more severe and the intrathecal pump is not covering her pain as well. We reviewed all other medications and there are no other changes other than she has listed both Paxil and Prozac. She is not taking both, only the Prozac 40 mg daily. She denies osteoarthritis. Her current pain score is 9/10. She is a fall risk, but has not fallen recently. She does use a cane. She is on no blood thinners or antihypertensive medications. Opioid agreement signed and reviewed with [employer] opioid risk tool assessment. She continues to smoke and was counseled. She has reduced her use to 2 cigarettes a day. PHYSICAL EXAMINATION: GENERAL: She is mildly depressed. VITAL SIGNS: Her blood pressure is 194/84, heart rate is 74 and she is morbidly obese. CHEST: Clear. CARDIAC: Rhythm is regular. EXTREMITIES: She has tenderness across her low back and her scar. Mild straight leg raising is present. Her gait is antalgic. IMPRESSION: 1. Post-laminectomy syndrome with radiculopathy. 2. Management of intrathecal infusion pump and oral medication. [facility] [address] [place] [address] PAIN MANAGEMENT CONSULTATION Name: THIAGO BUCK Room #: REG [facility] Rosendo.#: [id number] Admission: 10/13/18 ������������������ Attend Phys: Maximus Schmitt MD Discharge: ������������������ Date of : 56 Report #: [id number] PROCEDURE: Refill and reprogramming of intrathecal infusion pump. DESCRIPTION OF PROCEDURE: Skin was prepped with ChloraPrep and a 22-gauge non-coring needle advanced into the intrathecal pump. Old medication removed and discarded per protocol and refilled with hydromorphone, bupivacaine solution. Reprogramming session was performed and is included in the patient's discharge paper, so she has a copy and also on the chart. Her daily dose will be hydromorphone 7.18, bupivacaine 7.18 daily. Her next refill is scheduled for about 6 weeks. Her medications were also renewed today and again under terms of our agreement she will carefully safeguard these medications. Followup visit planned in November. ��������������������������������������������� ���������������������������������������� By: ��������������������������������������������� [id number] [id number] Maximus Schmitt MD /nt
[2018-10-13 09:34] VITALS: BP 194/84
--- NOTE | 2018-10-13 09:39 | NUR ---
Pain Clinic Assessment: 1. History of Osteoarthritis: Not Applicable History of Rheumatoid Arthritis: Not Applicable 2. Height: 5 ft. 3 in. 160.0 cm. Weight: 197.0 lb. oz. 89.359 kg. Patient's BMI: 34.9 3. Vital Signs: BP: 194/84 Pulse: 74 Resp: 16 Temp: 02 Sat: 97 ECG Mon: 4. Pain Intensity: 9 5. Fall Risk: Dizziness: N Needs help standing or walking: N Fallen in the last 3 months: N Fall risk comments: USES CANE 6. Patient on Blood Thinner: None 7. History of Hypertension: Y 8. Opioid Therapy greater than 6 weeks: Y Opiate Contract Signed: 12/03/15 9. Risk Assessment Tool Provided: Opioid Risk Tool 10. Functional Assessment Tool: 59/70 11. Recreational Drug Use: Never Drug Type: Tobacco Use: Current Every Day Smoker Tobacco Type: Cigarettes Amount or Packs/day: 2 CIGS DAY How Many Years: Alcohol Use: No Frequency: Quant:
== END | disposition home or self-care (01) ==
LOC: PAIN 08-25 08:24
DX: Z45.1 Encounter for adjustment and management of infusion pump (principal); M54.16 Radiculopathy, lumbar region; G89.29 Other chronic pain; M96.1 Postlaminectomy syndrome, not elsewhere classified; F17.210 Nicotine dependence, cigarettes, uncomplicated; Z79.891 Long term (current) use of opiate analgesic; Z79.899 Other long term (current) drug therapy; Z98.890 Other specified postprocedural states

== ENCOUNTER → 2018-11-28 | Outpatient (CLI) | payer OTHER ==
[~2018-11-28] VITALS: Ht 160 cm; Wt 94.0 kg
--- NOTE | ~2018-11-28 | HPC ---
Former[facility] [address] [place] [address] PAIN MANAGEMENT CONSULTATION Name: THIAGO BUCK Room #: REG EDWIN Robbins.#: [id number] Admission: 11/28/18 ������������������ Attend Phys: Maximus Schmitt MD Discharge: ������������������ Date of : 56 Report #: [id number] THIS REPORT FOR: //name// CC: Physician staff Maximus Olivia MD DATE OF SERVICE: 11/28/2018 Followup visit for chronic low back pain with radiculopathy, post-laminectomy syndrome. The patient is here today for refill and management of intrathecal infusion pump. The patient returns today for refill of her pump and oral medications. She reports that she is doing reasonably well. There have been no complications. No hospital visits or Emergency Room visits since her last visit less than 2 months ago. Today, she scores her pain as a 9/10. This does not keep her from being functional and active. She is able to carry on a pleasant conversation. Pain intensity score is not certainly reflected in her outgoing demeanor. PHYSICAL EXAMINATION: She is 5 feet 3 inches, 207 pounds, BMI is 36.7. Her blood pressure 174/77, heart rate is 77, respirations 18, O2 sat 96. She is able to independently move from sitting to standing position. She walks with an antalgic gait. She is not dizzy and she has not fallen in the last 3 months, but needs some assistance with a cane to prevent falls. I would consider her a fall risk. Pump is in the left lower flank and nontender. There is no evidence of swelling or inflammation. She has ongoing tenderness across her lumbosacral segment. Straight leg raising is present bilaterally and is mild. IMPRESSION: 1. Post-laminectomy syndrome with radiculopathy. 2. Management of intrathecal infusion pump with refill and reprogramming. 3. Management of oral medications under terms of written opioid agreement. The importance of safeguarding medication was discussed. The patient, despite her high pain score, is grateful for the pain medication and reports that she would be less functional and pain would be much higher without. She carefully safeguards her medication and I have received the same insurance from her daughter who is here with her in the clinic. [address] [address] PAIN MANAGEMENT CONSULTATION Name: THIAGO BUCK Room #: REG Juan Zafar#: [id number] Admission: 11/28/18 ������������������ Attend Phys: Maximus Schmitt MD Discharge: ������������������ Date of : 56 Report #: [id number] PROCEDURE: Refill and reprogramming of intrathecal infusion pump. Skin was prepped with ChloraPrep and anesthetized. A 22-gauge non-coring needle advanced into the intrathecal pump. Old medication removed and discarded. This was done by protocol. The pump was then refilled with a combination of bupivacaine and hydromorphone, each with 20 mg per mL. Her daily doses 7.1 mg of hydromorphone and the same for bupivacaine. Her next refill is in about 49 days. We will see her back in the clinic before 01/15/2019. ��������������������������������������������� ���������������������������������������� By: ��������������������������������������������� [id number] Maximus Schmitt MD /nt
[2018-11-28 13:39] VITALS: BP 174/777
--- NOTE | 2018-11-28 13:40 | NUR ---
Pain Clinic Assessment: 1. History of Osteoarthritis: Not Applicable History of Rheumatoid Arthritis: Not Applicable 2. Height: 5 ft. 3 in. 160.0 cm. Weight: 207.2 lb. oz. 93.985 kg. Patient's BMI: 36.7 3. Vital Signs: BP: 174/777 Pulse: 770 Resp: 18 Temp: 02 Sat: 96 ECG Mon: 4. Pain Intensity: 9 5. Fall Risk: Dizziness: N Needs help standing or walking: Y Fallen in the last 3 months: N Fall risk comments: USES CANE 6. Patient on Blood Thinner: None 7. History of Hypertension: Y 8. Opioid Therapy greater than 6 weeks: Y Opiate Contract Signed: 12/03/15 9. Risk Assessment Tool Provided: Opioid Risk Tool 10. Functional Assessment Tool: 11. Recreational Drug Use: Never Drug Type: Tobacco Use: Current Every Day Smoker Tobacco Type: Cigarettes Amount or Packs/day: How Many Years: Alcohol Use: No Frequency: Quant:
== END | disposition home or self-care (01) ==
LOC: PAIN 06:45
DX: Z45.1 Encounter for adjustment and management of infusion pump (principal); M54.16 Radiculopathy, lumbar region; G89.29 Other chronic pain; M96.1 Postlaminectomy syndrome, not elsewhere classified; Z79.891 Long term (current) use of opiate analgesic; Z98.890 Other specified postprocedural states

== ENCOUNTER → 2019-01-12 | Outpatient (CLI) | payer OTHER ==
[~2019-01-12] VITALS: Ht 160 cm; Wt 94.3 kg
[~2019-01-12] MED LIST changes: +HYDROCODON-ACE1 EA10 PO; +HYDROCODON-ACE1 EAC7 PO
[2019-01-12 15:04] VITALS: BP 197/80
--- NOTE | 2019-01-12 15:10 | NUR ---
Pain Clinic Assessment: 1. History of Osteoarthritis: Not Applicable History of Rheumatoid Arthritis: Not Applicable 2. Height: 5 ft. 3 in. 160.0 cm. Weight: 208.0 lb. oz. 94.348 kg. Patient's BMI: 36.9 3. Vital Signs: BP: 197/80 Pulse: 71 Resp: 16 Temp: 02 Sat: 96 ECG Mon: 4. Pain Intensity: 9 5. Fall Risk: Dizziness: N Needs help standing or walking: N Fallen in the last 3 months: N Fall risk comments: USES CANE 6. Patient on Blood Thinner: None 7. History of Hypertension: Y 8. Opioid Therapy greater than 6 weeks: Y Opiate Contract Signed: 12/03/15 9. Risk Assessment Tool Provided: Opioid Risk Tool 10. Functional Assessment Tool: / 11. Recreational Drug Use: Never Drug Type: Tobacco Use: Current Every Day Smoker Tobacco Type: Cigarettes Amount or Packs/day: 3 How Many Years: Alcohol Use: No Frequency: Quant:
--- NOTE | 2019-01-17 17:25 | HPC ---
Former[facility] [address] [address] PAIN MANAGEMENT CONSULTATION Name: THIAGO BUCK Room #: REG EDWIN Robbins.#: [id number] Admission: 01/12/19 ������������������ Attend Phys: Maximus Schmitt MD Discharge: ������������������ Date of : 56 Report #: [id number] THIS REPORT FOR: //name// CC: Physician staff Maximus Olivia MD DATE OF SERVICE: 01/12/2019 Followup visit for chronic intractable low back pain and management of intrathecal infusion pump. HISTORY OF PRESENT ILLNESS: The patient returns today for refill of her intrathecal infusion pump. She has chronic pain dating back decades. The pump has been helpful along with a small amount of supplementary oral pain medication. She also uses heat and ice. She is able to function providing her own self care, but her day-to-day activities are limited by her debility and pain. We have encouraged her to remain active and encouraged her along the lines of healthy living as discussed below. PQRS REVIEW: 1. She has a history of some joint pains with osteoarthritis of hips and knees. She has had a right knee arthroscopy. 2. She is 5 feet 3 inches with a BMI of 36.9. She has been counseled about healthy living with diet. 3. Vitals signs: Blood pressure 197/80, heart rate 71, respirations 16, and O2 96. 4. Pain intensity is 9/10 today. 5. She is not a fall risk and has not fallen in the last 3 months. She does, however, on occasion use a cane. 6. No blood thinners. 7. History of hypertension, under treatment by medication. Reviewed all medications including her antihypertensives and oral pain medications. She is on hydromorphone for her blood pressure. 8. She is on an opioid agreement doc signed in 2016. 9. She has completed an opioid risk tool and is considered at moderate risk for addiction. We see her regularly. 10. Functional score is quite poor 59/70 suggesting significant debility despite her efforts to provide pain relief with medications in the pump and orally. 11. She is a current every day smoker and has smoked for many years. I have counseled on many occasions for her to quit. She was addicted and has difficulty going off. We discussed its role in pain management. IMPRESSION: [facility] [address] [address] PAIN MANAGEMENT CONSULTATION Name: BUCKTHIAGO LOPEZBETH Room #: REG EDWIN Robbins.#: [id number] Admission: 01/12/19 ������������������ Attend Phys: Maximus Schmitt MD Discharge: ������������������ Date of : 56 Report #: [id number] 1. Chronic intractable low back pain, post-laminectomy syndrome. 2. Management of intrathecal infusion pump with refill and reprogramming. 3. Management of oral medications under terms of written opioid agreement. She has promised me that she will safeguard her medication. She receives hydrocodone 5/325, 75 tablets a month for an MME of 12.5. PROCEDURE: Skin was prepped with ChloraPrep and 22-gauge non-coring needle advanced into the intrathecal pump. Old medication was removed and discarded. Pump was refilled with hydromorphone, bupivacaine solution and reprogrammed. Information was checked by myself and the nurse and initial. Copy given to the patient. Hydrocodone prescription provided for her. I plan to see her back in the pain clinic in about 2-1/2 months for pump refill. ��������������������������������������������� <ELECTRONICALLY SIGNED> ���������������������������������������� By: Maximus Schmitt MD ��������������������������������������������� 01/17/19 1725 1700 0151 Maximus Schmitt MD /nt
== END | disposition home or self-care (01) ==
LOC: PAIN 01-09 06:44
DX: Z45.1 Encounter for adjustment and management of infusion pump (principal); G89.29 Other chronic pain; M96.1 Postlaminectomy syndrome, not elsewhere classified; M19.90 Unspecified osteoarthritis, unspecified site; I10 Essential (primary) hypertension; F17.210 Nicotine dependence, cigarettes, uncomplicated; Z79.899 Other long term (current) drug therapy

== ENCOUNTER → 2019-03-02 | Outpatient (CLI) | payer OTHER ==
[~2019-03-02] VITALS: Ht 160 cm; Wt 90.2 kg
--- NOTE | ~2019-03-02 | HPC ---
[facility] [place] [address] [place] [address] PAIN MANAGEMENT CONSULTATION Name: THIAGO BUCK Room #: REG Juan Robbins.#: [id number] Admission: 03/02/19 Attend Phys: Maximus Schmitt MD Discharge: Date of : 56 Report #: [id number] THIS REPORT FOR: //name// CC: Physician staff Maximus Olivia MD DATE OF SERVICE: 03/02/2019 REASON FOR CONSULTATION: Followup visit for chronic low back pain and management of intrathecal infusion pump. HISTORY OF PRESENT ILLNESS: The patient returns to pain clinic today for refill of her intrathecal pump. She missed her appointment last week and we had to reschedule her. She did not call, simply did not show up. She does have enough medication in her pump today and the alarm has not gone off. She complains today of pain at a level of 7-8/10, despite her medication. She also has been taking some oral medication. Family was quite rude at the end of her visit today because there were some discrepancies in her prescription drug monitoring program, which we were not able to resolve before they left. PQRS: 1. The patient is 5 feet 3 inches, 198 pounds. BMI 35.2. 2. Her blood pressure 208/98, heart rate 80, respirations 16. 3. She was referred back to her primary care physician for followup of this high blood pressure. 4. Pain intensity 7-8/10. 5. She is a fall risk and needs help with walking using a cane. 6. She is on no blood thinner. 7. History of hypertension. 8. She is on an opioid agreement. 9. We reviewed our opioid prescription, it on the prescription drug monitoring and there are no other prescribers of opioid; however, we had some discrepancy between her chart and what we felt that we had written. Mostly this was due to dated release prescriptions. I was working to resolve this when the patient left the office. Unfortunately, I had to step out of the room to perform a procedure on an elderly patient, and they were unwilling to wait. They cursed my staff as they left, saying that their time was valuable. 10. She continues to smoke despite my counseling. She denies use of alcohol. IMPRESSION: 1. Chronic intractable low back pain, post-laminectomy syndrome. 2. Management of intrathecal infusion pump with refill and reprogramming. 3. Management of oral medications under terms of written agreement. She was [facility] [place] [place] [address] [place] [address] PAIN MANAGEMENT CONSULTATION Name: THIAGO BUCK Room #: REG CLJuan Andrade#: [id number] Admission: 03/02/19 Attend Phys: Maximus Schmitt MD Discharge: Date of : 56 Report #: [id number] provided with 1 prescription for hydrocodone today at discharge. PROCEDURE: Refill of intrathecal pump. Skin was prepped with ChloraPrep. A 22-gauge non-coring needle advanced in the pump. Old medication removed and discarded. Pump was refilled with hydromorphone, bupivacaine and reprogrammed. My nurse and I checked the information and a copy was given to the patient as they cursingly left my clinic. A phone call will be placed to the patient and her daughter to discuss this further. By: [id number] Maximus Schmitt MD /nt
[2019-03-02 13:16] VITALS: BP 204/98
--- NOTE | 2019-03-02 13:26 | NUR ---
Pain Clinic Assessment: 1. History of Osteoarthritis: Not Applicable History of Rheumatoid Arthritis: Not Applicable 2. Height: 5 ft. 3 in. 160.0 cm. Weight: 198.8 lb. oz. 90.175 kg. Patient's BMI: 35.2 3. Vital Signs: BP: 204/98 Pulse: 80 Resp: 16 Temp: 02 Sat: 97 ECG Mon: 4. Pain Intensity: 7-8 5. Fall Risk: Dizziness: N Needs help standing or walking: Y Fallen in the last 3 months: N Fall risk comments: USES CANE 6. Patient on Blood Thinner: None 7. History of Hypertension: Y 8. Opioid Therapy greater than 6 weeks: Y Opiate Contract Signed: 12/03/15 9. Risk Assessment Tool Provided: Opioid Risk Tool 10. Functional Assessment Tool: / 11. Recreational Drug Use: Never Drug Type: Tobacco Use: Current Every Day Smoker Tobacco Type: Cigarettes Amount or Packs/day: 4-5 CIGS/DAY How Many Years: Alcohol Use: No Frequency: Quant:
== END | disposition home or self-care (01) ==
LOC: PAIN 02-27 06:43
DX: Z45.1 Encounter for adjustment and management of infusion pump (principal); G89.29 Other chronic pain; M54.5 Low back pain; M96.1 Postlaminectomy syndrome, not elsewhere classified; I10 Essential (primary) hypertension; F17.210 Nicotine dependence, cigarettes, uncomplicated; Z79.891 Long term (current) use of opiate analgesic; Z79.899 Other long term (current) drug therapy; Z98.890 Other specified postprocedural states

== ENCOUNTER → 2019-04-06 | Outpatient (CLI) | payer OTHER ==
[~2019-04-06] VITALS: Ht 162.6 cm; Wt 87.3 kg
[2019-04-06 09:25] VITALS: BP 206/69
--- NOTE | 2019-04-06 09:27 | NUR ---
Pain Clinic Assessment: 1. History of Osteoarthritis: Not Applicable History of Rheumatoid Arthritis: Not Applicable 2. Height: 5 ft. 4 in. 162.6 cm. Weight: 192.4 lb. oz. 87.272 kg. Patient's BMI: 33.0 3. Vital Signs: BP: 206/69 Pulse: 76 Resp: 18 Temp: 02 Sat: 97 ECG Mon: 4. Pain Intensity: 10 5. Fall Risk: Dizziness: N Needs help standing or walking: N Fallen in the last 3 months: N Fall risk comments: USES CANE 6. Patient on Blood Thinner: None 7. History of Hypertension: Y 8. Opioid Therapy greater than 6 weeks: Y Opiate Contract Signed: 12/03/15 9. Risk Assessment Tool Provided: Opioid Risk Tool 10. Functional Assessment Tool: / 11. Recreational Drug Use: Never Drug Type: Tobacco Use: Current Every Day Smoker Tobacco Type: Amount or Packs/day: How Many Years: Alcohol Use: No Frequency: Quant:
--- NOTE | 2019-04-11 11:26 | HPC ---
[facility] [place] [address] PAIN MANAGEMENT CONSULTATION Name: THIAGO BUCK Room #: REG [facility]..#: [id number] Admission: 04/06/19 ������������������ Attend Phys: Susana Dang Discharge: ������������������ Date of : 56 Report #: [id number] THIS REPORT FOR: //name// CC: Susana Dang Physician staff Maximus Olivia MD DATE OF SERVICE: 04/06/2019 CHIEF COMPLAINT: Chronic low back pain, management of intrathecal infusion pump. HISTORY OF PRESENT ILLNESS: This is a 58-year-old female who returns to the pain clinic today for a refill of her medications. She is here with her daughter present today. She is complaining of pain of 10/10 in her lower back and right leg. It is a burning, sharp pain. She tells me that it is worse with activity, but her medications and heat are beneficial. She denies any problems with constipation or daytime sleepiness. Her intrathecal pump is infusing without problems at a rate of 7.18 mg of hydromorphone per day as well as bupivacaine. She is needing refills of her oral pain medications before her intrathecal pump refill in a couple of weeks. The patient does have elevated blood pressure today, which has been elevated for several visits. Today, it is 206/69. She denies any headache, states that she takes her medication after she eats breakfast, which she has not had today. ALLERGIES: No known drug allergies. CURRENT LIST OF MEDICATIONS: Hydrocodone 5/325 p.r.n., tizanidine 4 mg 1-2 at bedtime, Paxil 10 mg daily, fluoxetine 40 mg daily, Zantac 150 mg p.r.n., ibuprofen 200 mg p.r.n., Flonase, simvastatin 20 mg daily, amlodipine 5 mg daily, Benadryl p.r.n., clonazepam 0.5 mg b.i.d. and lisinopril/hydrochlorothiazide 20/25 daily. PQRS: 1. The patient denies any rheumatoid arthritis or osteoarthritis. 2. Height is 5 feet 4 inches, weight is 192, BMI is 33. 3. Vital signs 206/69, pulse is 76, respirations 18, oxygen sat is 97. 4. Pain score is 10/10. 5. Denies dizziness, does not need help walking or standing, but does use a cane, has not fallen in the last 3 months. 6. The patient is not on any blood thinners, but does take medicine for hypertension. 7. Opiate therapy is greater than 6 weeks; therefore, an opiate signed contract [address] [address] PAIN MANAGEMENT CONSULTATION Name: THIAGO BUCK Room #: REG [facility] Andrade#: [id number] Admission: 04/06/19 ������������������ Attend Phys: Susana Dang Discharge: ������������������ Date of : 56 Report #: [id number] is on the chart. Risk assessment tool is low. Functional assessment is 59/70. 8. Recreational drug use, she denies. She is a current smoker and does not drink alcohol. According to the prescription monitoring system, the patient is due to fill her medications. IMPRESSION: 1. Chronic intractable low back pain, post-laminectomy syndrome. 2. Management of intrathecal infusion pump. 3. Management of oral medications under terms of written opioid agreement. PHYSICAL EXAMINATION: GENERAL: This is a 58-year-old female who appears her stated age, placing her current pain score at 10/10. HEENT: Normocephalic, atraumatic. Extraocular eye muscles are intact. Mucous membranes are moist. MUSCULOSKELETAL: The patient moves independently from sitting to standing position, though does use a cane and walks with an antalgic gait. She has pain in her lumbar spine and tenderness in her lumbosacral area. Straight leg raising is present. Her pump is in her left lower flank area and is nontender, with no evidence of swelling or inflammation. Lower extremity strength judged to be 5/5 in all major muscle groups. We reviewed the fact that opiate medications are being used to provide analgesia adequate to support activities of daily living, not attempting to achieve a specific pain score on the 0-10 Visual Analog Scale. The current opiate medications are providing sufficient analgesia to allow the patient to participate in activities of daily living. The patient is not exhibiting any aberrant behavior suggestive of drug diversion. The patient is not having any adverse reactions to medications. The patient is not suffering from daytime somnolence or mental acuity changes. The patient is managing opiate-induced constipation with appropriate [id number]-vihlovj agents and dietary considerations. The patient was counseled on concern for caution with operating a motor vehicle while using opiate medications. A physical exam was performed and the patient's functional status was evaluated. All patients with back pain were advised against the bed rest greater than 4 days and were advised to return to normal activities. Pain score assessment was noted and the treatment plan was reviewed with the patient. All current medications, both prescribed and OTC were reviewed and reconciled on the electronic medical record. Tobacco screening was accomplished and smoking cessation was advised when indicated. BMI was noted and diet/exercise modification was recommended for all patients following outside normal parameters. [address] [address] PAIN MANAGEMENT CONSULTATION Name: THIAGO BUCK [facility] [id number] Admission: 04/06/19 ������������������ Attend Phys: Susana Dang Discharge: ������������������ Date of : 56 Report #: [id number] I reviewed with the patient today their responsibilities to safeguard prescription medications, reviewed their responsibility to utilize medications only as prescribed by the physician. They are to seek and receive pain medications only from 1 physician group ( [facility]). They are to use 1 pharmacy and keep the clinic informed if they change pharmacies. Their responsibilities include making followup visits in a timely fashion and to avoid abrupt discontinuation of medication usage. Their responsibilities further include bringing their medications (bottles from the pharmacy with residual pills) to the visit for possible confirmation of pill counts and the patient understands it is their responsibility to submit to random drug screens to ensure both that the medications prescribed are present, and that no other controlled substances are present. All prescriptions provided today were generated electronically. PLAN: 1. We discussed treatment options with the patient today. The patient is here for refill on her medications. She is to have her intrathecal pump refilled in 2-1/2 weeks; therefore, we will give her medications for today and a refill in 4 weeks and hopefully that will enable her to have her medications until her next intrathecal pump refill. Scripts given today for hydrocodone 5/325, #75, patient to take 2-3 average a day, 75 is that month of medications. These are released today and again in 4 weeks. 2. No tizanidine as needed today since it was called in just recently with refills. 3. Dr. Maximus Schmitt did come and talk to the patient as well as the daughter separately about their behavior at the last visit being quite rude to our staff. He explained to them that he will not tolerate that in our clinic. They are welcome to find another pain physician if they feel that they were not treated fairly and had to wait too long, which the daughter insinuated that they were here for a long time at that visit and that Dr. Schmitt caused some pain when he refilled her pump. Dr. Schmitt acknowledged this. He says he will use lidocaine in her next fill. Her intrathecal pump is located in her back, which does cause some time some increased pain in her refill going through the skin at that area. We will offer the patient and family several other clinics that do refill pumps as well as the records, so they can take with them after their next visit. I explained to the family that I encouraged her to have her refill next week since it will take time to make an appointment for another practice to take over her medications. They verbalized understanding and will keep their appointment on 04/17/2019 for their intrathecal pump refill. 4. The patient was discharged after this discussion, an appointment made. ��������������������������������������������� <ELECTRONICALLY SIGNED> ���������������������������������������� By: Susana Dang ��������������������������������������������� 04/11/19 1126 [id number] 1214 Susana Dang /mary
== END ==
LOC: PAIN 06:44
DX: M54.5 Low back pain (principal); M96.1 Postlaminectomy syndrome, not elsewhere classified; Z79.891 Long term (current) use of opiate analgesic

== ENCOUNTER → 2019-04-17 | Outpatient (CLI) | payer OTHER ==
[~2019-04-17] VITALS: Ht 162.6 cm; Wt 85.9 kg
[~2019-04-17] MED LIST changes: +CYMBALTA20 MG PO; +LISINOPRIL-HCT1 EAC2 PO
[2019-04-17 11:23] VITALS: BP 197/76
--- NOTE | 2019-04-17 11:26 | NUR ---
Pain Clinic Assessment: 1. History of Osteoarthritis: Not Applicable History of Rheumatoid Arthritis: Not Applicable 2. Height: 5 ft. 4 in. 162.6 cm. Weight: 189.4 lb. oz. 85.911 kg. Patient's BMI: 32.5 3. Vital Signs: BP: 197/76 Pulse: 80 Resp: 18 Temp: 02 Sat: 96 ECG Mon: 4. Pain Intensity: 8 5. Fall Risk: Dizziness: N Needs help standing or walking: Y Fallen in the last 3 months: N Fall risk comments: USES CANE 6. Patient on Blood Thinner: None 7. History of Hypertension: Y 8. Opioid Therapy greater than 6 weeks: Y Opiate Contract Signed: 12/03/15 9. Risk Assessment Tool Provided: Opioid Risk Tool 10. Functional Assessment Tool: / 11. Recreational Drug Use: Never Drug Type: Tobacco Use: Current Every Day Smoker Tobacco Type: Cigarettes Amount or Packs/day: 2 CIGS A DAY How Many Years: Alcohol Use: No Frequency: Quant:
--- NOTE | 2019-04-27 16:52 | HPC ---
[facility] [address] [place] [address] PAIN MANAGEMENT CONSULTATION Name: THIAGO BUCK Room #: REG [facility].#: [id number] Admission: 04/17/19 Attend Phys: Maximus Schmitt MD Discharge: Date of : 56 Report #: [id number] THIS REPORT FOR: //name// CC: Physician staff Maximus Olivia MD DATE OF SERVICE: 04/17/2019 Followup visit for refill and reprogramming of intrathecal infusion pump. Because of difficulty getting to our clinic from her home and the time required to be seen here over the course of the last few visits, her daughter and the patient have asked that we prepare a packet for them to transfer their care to another clinic. I have suggested options of [facility], [facility]. Dr. Arellano placed her pump initially and he transferred her care from him to us. She does not wish to go back to Dr. Arellano's care. ____ manages pumps, but typically only for patients for whom he has provided ongoing care. Dr. Abbott may be another option. We discussed my assistance in her transfer and I wish her well going forward in the future. Her pump has been helpful and there were no significant request of changes in her medication. She currently complains of pain in her low back and right leg. She has a burning sharp pain, and she scores this as an 8/10; this is fairly typical. I reviewed her medication, currently taking Cymbalta 20 mg daily; hydrocodone 5/325 as needed for breakthrough pain at low dose, no more than 2-3 per day; tizanidine 4 mg 1-2 tablets at bedtime; Prozac 40 mg daily; ranitidine; ibuprofen; fluticasone; simvastatin; Norvasc; diphenhydramine; clonazepam 0.5 mg as needed p.r.n. b.i.d.; and Zestoretic 20-25. We discussed the potential interactions of opioids and benzodiazepines. She has had no significant issues. PHYSICAL EXAMINATION: GENERAL: She is a pleasant female. VITAL SIGNS: Blood pressure is 197/76, heart rate 80, respirations 18, height 5 feet 4 inches, weight 189 pounds, BMI of 32.5. She can move independently from sitting to standing position. Her gait is antalgic. CHEST: Clear. CARDIAC: Rhythm is regular. SPINE: Examination of the spine reveals tenderness. There is a scar from previous surgery. Pump is in the left subcostal region in the left flank and is nontender. It does not move. It is easily palpable. She has pain across her low back and straight leg raising discomfort into the right leg consistent with radiculopathy. [address] [address] PAIN MANAGEMENT CONSULTATION Name: THIAGO BUCK Room #: REG CL Andrade#: [id number] Admission: 04/17/19 Attend Phys: Maximus Schmitt MD Discharge: Date of : 56 Report #: [id number] IMPRESSION: Chronic low back pain. PLAN: Refill reprogramming and renewal of oral medication. PROCEDURE: Skin was prepped with ChloraPrep and skin anesthetized with 1% lidocaine. A 22-gauge non-coring needle advanced into the intrathecal pump. Old medication removed and discarded per protocol. Pump was then refilled and reprogrammed as noted. Current medication is hydromorphone and bupivacaine. Programming information was confirmed and checked by myself and nurse, initialed, and a copy given to the patient as well as a packet of our records. A followup visit is planned with her new physician sometime before her next pump refill, which is in 48 days. A larger pump may be of benefit for her when replaced to increase her interval between refills. <ELECTRONICALLY SIGNED> By: Maximus Schmitt MD 04/27/19 1652 1220 0134 Maximus Schmitt MD /nt
== END | disposition home or self-care (01) ==
LOC: PAIN 06:50
DX: Z45.1 Encounter for adjustment and management of infusion pump (principal); M54.5 Low back pain; G89.29 Other chronic pain; F17.210 Nicotine dependence, cigarettes, uncomplicated; Z79.899 Other long term (current) drug therapy; Z98.890 Other specified postprocedural states; Z79.891 Long term (current) use of opiate analgesic

== ENCOUNTER → 2019-06-01 | Outpatient (CLI) | payer OTHER ==
[~2019-06-01] VITALS: Ht 152.4 cm; Wt 83.6 kg
[2019-06-01 09:51] VITALS: BP 180/61
--- NOTE | 2019-06-01 10:04 | NUR ---
Pain Clinic Assessment: 1. History of Osteoarthritis: neck History of Rheumatoid Arthritis: Not Applicable 2. Height: 5 ft. 4 in. 152.4 cm. Weight: 184.2 lb. oz. 83.553 kg. Patient's BMI: 36.0 3. Vital Signs: BP: 180/61 Pulse: 71 Resp: 20 Temp: 02 Sat: 98 ECG Mon: 4. Pain Intensity: 8 5. Fall Risk: Dizziness: N Needs help standing or walking: N Fallen in the last 3 months: N Fall risk comments: USES CANE 6. Patient on Blood Thinner: None 7. History of Hypertension: Y 8. Opioid Therapy greater than 6 weeks: Y Opiate Contract Signed: 12/03/15 9. Risk Assessment Tool Provided: Opioid Risk Tool 10. Functional Assessment Tool: / 11. Recreational Drug Use: Never Drug Type: Tobacco Use: Current Every Day Smoker Tobacco Type: Cigarettes Amount or Packs/day: 4 cigs/day How Many Years: 46 Alcohol Use: No Frequency: Quant:
--- NOTE | 2019-06-01 10:10 | NUR ---
Pain Clinic Assessment: 1. History of Osteoarthritis: neck History of Rheumatoid Arthritis: Not Applicable 2. Height: 5 ft. 4 in. 152.4 cm. Weight: 184.2 lb. oz. 83.553 kg. Patient's BMI: 36.0 3. Vital Signs: BP: 180/61 Pulse: 71 Resp: 20 Temp: 02 Sat: 98 ECG Mon: 4. Pain Intensity: 8 5. Fall Risk: Dizziness: N Needs help standing or walking: N Fallen in the last 3 months: N Fall risk comments: USES CANE 6. Patient on Blood Thinner: None 7. History of Hypertension: Y 8. Opioid Therapy greater than 6 weeks: Y Opiate Contract Signed: 12/03/15 9. Risk Assessment Tool Provided: 2-low risk 10. Functional Assessment Tool: 11. Recreational Drug Use: Never Drug Type: Tobacco Use: Current Every Day Smoker Tobacco Type: Cigarettes Amount or Packs/day: 4 cigs/day How Many Years: 46 Alcohol Use: No Frequency: Quant:
== END | disposition home or self-care (01) ==
LOC: PAIN 06:55
DX: Z45.1 Encounter for adjustment and management of infusion pump (principal); E66.9 Obesity, unspecified; G89.29 Other chronic pain; M47.899 Other spondylosis, site unspecified; F17.210 Nicotine dependence, cigarettes, uncomplicated; Z79.899 Other long term (current) drug therapy

== ENCOUNTER → 2019-07-20 | Outpatient (CLI) | payer OTHER ==
[~2019-07-20] VITALS: Ht 160 cm; Wt 82.6 kg
--- NOTE | ~2019-07-20 | HPC ---
[facility] [address] [address] PAIN MANAGEMENT CONSULTATION Name: THIAGO BUCK Room #: REG [facility].#: [id number] Admission: 07/20/19 Attend Phys: Maximus Schmitt MD Discharge: Date of : 56 Report #: [id number] THIS REPORT FOR: //name// CC: Physician staff Maximus SPRAGUE DATE OF SERVICE: 07/20/2019 Followup visit for refill and reprogramming of intrathecal infusion pump for treatment of chronic pain. The patient returns to pain clinic today for refill of intrathecal infusion pump. She will be getting all of her medication in the future from Dr. Sprague. I have agreed to provide her with one final prescription for hydrocodone 5/325, #75 tablets. Her intrathecal pump needs refilling with hydromorphone and bupivacaine, which she has been on since Dr. Arellano placed her pump. I have been managing it for several years for her. We have been trying to find her another clinic, but no one seems to be willing to accept her closer to home in [place] according to the patient. PQRS review is positive for osteoarthritis and cervicalgia with spondylosis. Vital signs are blood pressure 184/73, heart rate 71, respirations 18, O2 sat 98%. BMI is 32.3 and stable. Pain intensity 10/10 by her report. She is unstable on her feet and uses a cane to walk and has antalgic features, but has not fallen in the last 3 months. She is on no blood thinning medications, but treats hypertension with Dr. Sprague with medicines, which were reviewed today. She is on an opioid agreement, signed in 2016. I will release her from that agreement, which she begin receiving medicine from her primary care physician. She has completed an opioid risk tool and scores to consider at low risk for addiction. We have had no one unexpected entries on the prescription drug monitoring program. Her functional assessment score is 59/70 suggesting significant impact for pain on her day-to-day activities despite all of our efforts with medication. She says that she continues to smoke and I have counseled her once again. I do not know she will have her quit. Her alcohol use is negative and she denies use of marijuana or other substances. IMPRESSION: 1. Chronic intractable pain with spondylosis. 2. Management of intrathecal pump. 3. Management of high risk medications under terms of written opioid agreement. 4. Hypertension. 5. Obesity. 6. Depression, which is stable. [facility] [address] [place] [address] PAIN MANAGEMENT CONSULTATION Name: THIAGO BUCK Room #: REG CL [facility].#: [id number] Admission: 07/20/19 Attend Phys: Maximus Schmitt MD Discharge: Date of : 56 Report #: [id number] PROCEDURE: Intrathecal pump was refilled in the usual fashion, skin prepped with ChloraPrep. Skin anesthetized and a 22-gauge non-coring needle advanced in the pump. Old medication removed and discarded. Pump was then refilled with 19.5 mL hydromorphone and bupivacaine and reprogramming session was performed. A 7.1 mg of hydromorphone and 7 mg of bupivacaine. Her next refill is scheduled for August in 2019 and her DEBORAH is now under 35 months. Other prescription was sent electronically and she was given important information regarding safeguarding. Followup visit planned in 2 months. By: [id number] Maximus Schmitt MD /nt
[2019-07-20 12:55] VITALS: BP 184/73
--- NOTE | 2019-07-20 12:59 | NUR ---
Pain Clinic Assessment: 1. History of Osteoarthritis: neck History of Rheumatoid Arthritis: Not Applicable 2. Height: 5 ft. 3 in. 160.0 cm. Weight: 182.2 lb. oz. 82.645 kg. Patient's BMI: 32.3 3. Vital Signs: BP: 184/73 Pulse: 71 Resp: 18 Temp: 02 Sat: 98 ECG Mon: 4. Pain Intensity: 10 5. Fall Risk: Dizziness: N Needs help standing or walking: N Fallen in the last 3 months: N Fall risk comments: USES CANE 6. Patient on Blood Thinner: None 7. History of Hypertension: Y 8. Opioid Therapy greater than 6 weeks: Y Opiate Contract Signed: 12/03/15 9. Risk Assessment Tool Provided: 2-low risk 10. Functional Assessment Tool: 11. Recreational Drug Use: Never Drug Type: Tobacco Use: Current Every Day Smoker Tobacco Type: Amount or Packs/day: How Many Years: Alcohol Use: No Frequency: Quant:
== END | disposition home or self-care (01) ==
LOC: PAIN 08:13
DX: Z45.1 Encounter for adjustment and management of infusion pump (principal); G89.29 Other chronic pain; M47.899 Other spondylosis, site unspecified; I10 Essential (primary) hypertension; E66.9 Obesity, unspecified; F32.9 Major depressive disorder, single episode, unspecified; M19.90 Unspecified osteoarthritis, unspecified site; F17.210 Nicotine dependence, cigarettes, uncomplicated; Z79.899 Other long term (current) drug therapy; Z98.890 Other specified postprocedural states

== ENCOUNTER → 2019-09-07 | Outpatient (CLI) | payer OTHER ==
[~2019-09-07] VITALS: Ht 160 cm; Wt 78.3 kg
--- NOTE | ~2019-09-07 | HPC ---
[facility] [place] [address] [place] [address] PAIN MANAGEMENT CONSULTATION Name: THIAGO BUCK Room #: REG [facility].#: [id number] Admission: 09/07/19 Attend Phys: Maximus Schmitt MD Discharge: Date of : 56 Report #: [id number] THIS REPORT FOR: cc: HAILEY SPRAGUE MD Physician not on staff Maximus Schmitt MD ~ THIS REPORT FOR: //name// CC: Physician staff Maximus Sprague MD DATE OF SERVICE: 09/07/2019 Followup visit for management of intrathecal infusion pump with refill. The patient is here today to refill her intrathecal infusion pump. She has chronic back pain secondary to spondylosis and has had an intrathecal pump placed prior to her establishing with our clinic. I have managed her pump now for around 4-5 years. The original pump placed by Dr. Arellano. We assumed her care when there were some issues and complex with Dr. Arellano and she was transitioned to Medicaid. Currently, she seems to be in good spirits as good as I have seen her in quite some time. She says that the pump is working well in controlling her pain effectively. She currently is receiving hydromorphone 7.1 mg per day along with bupivacaine at the same milligram dose. She denies side effects. PQRS review today, sites osteoarthritis, mostly spondylosis of the lumbar spine as well as the cervical spine. BMI of 30.6, stable. Discussed weight loss and dieting on many occasions. Blood pressure is 170/77, heart rate is 74, and respirations 18. Her pain intensity is a 6/10. She does need some assistance in walking and uses a cane to prevent falls. She has not fallen in the last 3 months. She denies use of blood thinners. Dr. Sprague treats her with antihypertensive, lisinopril, hydrochlorothiazide combination. All medicines have been reviewed and reconciled. There have been no significant changes since her prior visit. She has completed an opioid risk tool scoring 2, which is considered low risk for addiction. She has a high functional assessment score 59/70, describing high interference on almost all daily activities due to her pain. She is currently continuing to smoke despite multiple counseling sessions, but denies use of alcohol. She does not use marijuana in any form. PHYSICAL EXAMINATION: As is noted. GENERAL: Affect today is very pleasant, outgoing, and almost jovial. She is ____ I have seen her in some time. She does not appear to be depressed or [address] [address] PAIN MANAGEMENT CONSULTATION Name: THIAGO BUCK Room #: REG [facility].#: [id number] Admission: 09/07/19 Attend Phys: Maximus Schmitt MD Discharge: Date of : 56 Report #: [id number] anxious. Her gait is antalgic and waddling. CHEST: Her chest is clear. CARDIAC: Rhythm is regular. MUSCULOSKELETAL: Examination of the spine reveals mild tenderness. Previous surgery scars noted. The pump is in the left low back overlying above the iliac crest, nontender. IMPRESSION: 1. Chronic intractable pain with spondylosis. 2. Management of intrathecal infusion pump. 3. Management of high risk medications under terms of written opioid agreement. 4. Hypertension. 5. Obesity. 6. Depression. She seems to be in remission at this time. PLAN AND PROCEDURE: Refill and reprogram intrathecal infusion pump. Skin was prepped with ChloraPrep and a 22-gauge non-coring needle advanced in the pump on the first attempt. Old medication was removed and discarded. Expected 1.5 and retrieved 3. Medicine was accounted for per protocol and then the pump was refilled with a combination of hydromorphone, bupivacaine, and reprogrammed without change in daily dose, 7.1 of hydromorphone and bupivacaine per day was established and her next refill is scheduled in about 2-1/2 months. No medications were written for her today. Last prescription for hydrocodone was written on 07/20/2019 and she does not need an additional prescription today. By: [id number] Maxmius Schmitt MD /nt
[2019-09-07 13:06] VITALS: BP 170/77
--- NOTE | 2019-09-07 13:19 | NUR ---
Pain Clinic Assessment: 1. History of Osteoarthritis: neck History of Rheumatoid Arthritis: Not Applicable 2. Height: 5 ft. 3 in. 160.0 cm. Weight: 172.6 lb. oz. 78.291 kg. Patient's BMI: 30.6 3. Vital Signs: BP: 170/77 Pulse: 74 Resp: 18 Temp: 02 Sat: 98 ECG Mon: 4. Pain Intensity: 5-6 5. Fall Risk: Dizziness: N Needs help standing or walking: Y Fallen in the last 3 months: N Fall risk comments: USES CANE 6. Patient on Blood Thinner: None 7. History of Hypertension: Y 8. Opioid Therapy greater than 6 weeks: Y Opiate Contract Signed: 12/03/15 9. Risk Assessment Tool Provided: 2-low risk 10. Functional Assessment Tool: 11. Recreational Drug Use: Never Drug Type: Tobacco Use: Current Every Day Smoker Tobacco Type: Amount or Packs/day: How Many Years: Alcohol Use: No Frequency: Quant:
== END | disposition home or self-care (01) ==
LOC: PAIN 09-04 06:53
DX: Z45.1 Encounter for adjustment and management of infusion pump (principal); G89.29 Other chronic pain; M47.896 Other spondylosis, lumbar region; I10 Essential (primary) hypertension; F32.9 Major depressive disorder, single episode, unspecified; E66.09 Other obesity due to excess calories; Z79.891 Long term (current) use of opiate analgesic; Z79.899 Other long term (current) drug therapy; Z98.890 Other specified postprocedural states; Z68.30 Body mass index [BMI] 30.0-30.9, adult

== ENCOUNTER → 2019-10-23 | Outpatient (CLI) | payer OTHER ==
[~2019-10-23] VITALS: Ht 160 cm; Wt 79.4 kg
[~2019-10-23] MED LIST changes: +BUPIVICAINE; +HYDROMORPHONE; +NORCO 5-325 TA1 EAC1 PO
--- NOTE | ~2019-10-23 | HPC ---
[facility] [place] [address] PAIN MANAGEMENT CONSULTATION Name: THIAGO BUCK Room #: REG EDWIN MorganKeatonAnjana.#: [id number] Admission: 10/23/19 Attend Phys: Maximus Schmitt MD Discharge: Date of : 56 Report #: [id number] THIS REPORT FOR: cc: Andrade Olivia MD, Todd E. MD Morgan, Richard L. MD ~ CC: Maximus Olivia MD DATE OF SERVICE: 10/23/2019 Followup visit for management of intrathecal infusion pump with refill. The patient is here today for a critical pain clinic visit to refill her intrathecal infusion pump. Without refill her pump would go dry and she would go through significant withdrawal. She is scheduled to run out of medication on 10/25/2019. She has a 20 mL pump infusing hydromorphone and bupivacaine. Her dose is stable. She does not need additional adjustments. PQRS: Positive for osteoarthritis, mostly spondylosis of the spine. She also complains of some pain in her hips today as well and has degenerative changes there. Blood pressure is 179/85. She was counseled. Heart rate 83, pain intensity is 7/10. She uses a cane, but has not fallen in the last 3 months. She is on no blood thinners, has a history of hypertension, under treatment and also signed an opioid agreement for oral medications, which I provide for her intermittently. Her assessment scores 2 on the ORT. Continues to smoke 2 cigarettes a day. She was counseled. PHYSICAL EXAMINATION: Pleasant, no signs of depression or anxiety. She moves with antalgic gait. She has no cough. Her breathing is comfortable. She is afebrile. IMPRESSION: 1. Chronic intractable pain with spondylosis. 2. Management of intrathecal pump. 3. Management of high risk medications under terms of written opioid agreement. Medications were not requested today. 4. Obesity. 5. Tobaccoism. 6. Hypertension. PROCEDURE: Refill and reprogramming of intrathecal infusion pump. Skin was prepped with ChloraPrep. A 22-gauge non-coring needle advanced in the pump. Old medication removed and discarded. Pump was refilled with a [facility] [address] [place] [address] PAIN MANAGEMENT CONSULTATION Name: [facility] Room #: REG [facility]OSPITALLuis Carlos.#: [id number] Admission: 10/23/19 Attend Phys: Maximus Schmitt MD Discharge: Date of : 56 Report #: [id number] combination of hydromorphone, bupivacaine and reprogramming session performed. Her next refill is scheduled for 12/12/2019. Her DEBORAH is 30 months. Her daily dose will be hydromorphone 7.1 and bupivacaine 7.1. By: [id number] Maximus Schmitt MD /nt
[2019-10-23 11:16] VITALS: BP 179/85
--- NOTE | 2019-10-23 11:26 | NUR ---
Pain Clinic Assessment: 1. History of Osteoarthritis: neck History of Rheumatoid Arthritis: Not Applicable 2. Height: 5 ft. 3 in. 160.0 cm. Weight: 175.0 lb. oz. 79.380 kg. Patient's BMI: 31.0 3. Vital Signs: BP: 179/85 Pulse: 83 Resp: 16 Temp: 02 Sat: 100 ECG Mon: 4. Pain Intensity: 7 5. Fall Risk: Dizziness: N Needs help standing or walking: N Fallen in the last 3 months: N Fall risk comments: USES CANE 6. Patient on Blood Thinner: None 7. History of Hypertension: Y 8. Opioid Therapy greater than 6 weeks: Y Opiate Contract Signed: 12/03/15 9. Risk Assessment Tool Provided: 2-low risk 10. Functional Assessment Tool: 11. Recreational Drug Use: Never Drug Type: Tobacco Use: Current Every Day Smoker Tobacco Type: Cigarettes Amount or Packs/day: 2 CIGS PER D How Many Years: 46 Alcohol Use: No Frequency: Quant:
== END | disposition home or self-care (01) ==
LOC: PAIN 06:41
DX: Z45.1 Encounter for adjustment and management of infusion pump (principal); G89.29 Other chronic pain; I10 Essential (primary) hypertension; F17.210 Nicotine dependence, cigarettes, uncomplicated; E66.09 Other obesity due to excess calories; Z98.890 Other specified postprocedural states; Z79.899 Other long term (current) drug therapy; Z79.891 Long term (current) use of opiate analgesic

== ENCOUNTER → 2019-12-12 | Outpatient (CLI) | payer OTHER ==
[~2019-12-12] VITALS: Ht 160 cm; Wt 79.7 kg
--- NOTE | ~2019-12-12 | HPC ---
[facility] [place] [address] PAIN MANAGEMENT CONSULTATION Name: THIAGO BUCK Room #: REG EDWIN Robbins.#: [id number] Admission: 12/12/19 Attend Phys: Maximus Schmitt MD Discharge: Date of : 56 Report #: [id number] THIS REPORT FOR: cc: Andrade Olivia MD, Todd E. MD Morgan, Richard L. MD ~ CC: Maximus Olivia MD DATE OF SERVICE: 12/12/2019 Followup visit for chronic intractable pain with spondylosis. Intrathecal infusion pump with polypharmacy and medication of breakthrough oral opioid medication. The patient returns to the pain clinic today for refill of her intrathecal infusion pump. I did not place her pump. It was placed by Dr. Deshawn Arellano many years ago. She transferred to my care after a misunderstanding with him regarding the use of tobacco. She also coincidentally receives her care through Medicaid. She has chronic pain with multiple degenerative changes throughout the lumbar spine. She also complains of osteoarthritis and pain in her hips where she has x-ray evidence of degenerative changes. She has used opioids for many years and was able to substantially reduce her reliance on oral opioids with the use of intrathecal therapy. She has not completely discontinued them. Her pump infuses a combination of hydromorphone and bupivacaine. Her daily dose of intrathecal medication is relatively high. Hydromorphone at 7.1 mg daily and bupivacaine 7.1 mg daily. This would predispose her to an intrathecal granuloma. I would prefer not to increase it much further. Taking her off of opioids completely has been discussed in the past. I prescribed her hydrocodone for some time, then she transitioned her medications to Dr. Andrade Olivia, who also prescribes for her clonazepam. We have discussed on several occasions the interaction between benzodiazepines and opioids. Her doses; however, are small and her chronic use has shown that she is able to take them without harm as long as she sticks to her current doses. She uses clonazepam for anxiety and for sleep. She has asked me today if I will prescribe her opioid medication since Dr. Lorenz at the [facility] is uncomfortable in doing so. As long as ____, I will place her on an opioid agreement through our clinic and follow the [facility] [address] [place] [address] PAIN MANAGEMENT CONSULTATION Name: BUCKTHIAGO MUKESH Room #: REG Juan Robbins.#: [id number] Admission: 12/12/19 Attend Phys: Maximus Schmitt MD Discharge: Date of : 56 Report #: [id number] guidelines and prescribing her small amount of breakthrough hydrocodone. PQRS review is completed today. She continues to complain of osteoarthritis, complaining today of pain in her neck as well as her hips and her low back. She is obese with a BMI of 31.1 and this is stable. We have discussed weight as a contributor to chronic pain. Blood pressure is elevated 184/72, heart rate 72, respirations 18. Her primary care physician I am sure will help manage this. Pain intensity is an 8/10. She does use a cane, but has not fallen in the last 3 months and is cautious. She denies use of blood thinners. An opioid agreement will be reinitiated once we receive a transfer authorization from her primary care physician. She did complete an opioid risk tool and her score is 2 suggesting low risk of addiction. We discussed the importance of always safeguarding medication, keeping them carefully away from others and they are for her own use. Her functional assessment score is high today 59/70 suggesting very dramatic involvement of her pain on her chronic daily activities. She continues to smoke and was counseled. She denies use of alcohol or marijuana. IMPRESSION: 1. Chronic intractable pain with multiple joint arthritis, cervical and lumbar spondylosis. 2. Management of intrathecal infusion pump. 3. Management of high risk medications under terms of written agreement. 4. Obesity. 5. Continued use of tobacco. 6. Hypertension. PLAN: 1. Discussed the important aspects of self-management of chronic pain and taking care of herself 2. Refill and reprogramming of intrathecal infusion pump. PROCEDURE: Skin was prepped with ChloraPrep. A 22-gauge non-coring needle advanced in pump. Old medication removed and discarded. Pump refilled with hydromorphone and bupivacaine. Reprogramming session was performed. Her next refill is scheduled for January. Her next pump will be needed sometime within the next 2-1/2 years. We discussed Her DEBORAH of 22 months. Programming information was checked by myself and the nurse, copy given to the patient. Followup visit is planned in January. By: [id number] [id number] Maximus Schmitt MD /nt
[2019-12-12 10:41] VITALS: BP 184/72
--- NOTE | 2019-12-12 10:46 | NUR ---
Pain Clinic Assessment: 1. History of Osteoarthritis: neck History of Rheumatoid Arthritis: Not Applicable 2. Height: 5 ft. 3 in. 160.0 cm. Weight: 175.6 lb. oz. 79.652 kg. Patient's BMI: 31.1 3. Vital Signs: BP: 184/72 Pulse: 72 Resp: 18 Temp: 02 Sat: 97 ECG Mon: 4. Pain Intensity: 8 5. Fall Risk: Dizziness: N Needs help standing or walking: N Fallen in the last 3 months: N Fall risk comments: USES CANE 6. Patient on Blood Thinner: None 7. History of Hypertension: Y 8. Opioid Therapy greater than 6 weeks: Y Opiate Contract Signed: 12/03/15 9. Risk Assessment Tool Provided: 2-low risk 10. Functional Assessment Tool: 11. Recreational Drug Use: Never Drug Type: Tobacco Use: Current Every Day Smoker Tobacco Type: Amount or Packs/day: How Many Years: Alcohol Use: No Frequency: Quant:
== END | disposition home or self-care (01) ==
LOC: PAIN 06:51
DX: Z45.1 Encounter for adjustment and management of infusion pump (principal); G89.29 Other chronic pain; M19.90 Unspecified osteoarthritis, unspecified site; I10 Essential (primary) hypertension; E66.09 Other obesity due to excess calories; F17.220 Nicotine dependence, chewing tobacco, uncomplicated; Z79.891 Long term (current) use of opiate analgesic; Z98.890 Other specified postprocedural states; Z79.899 Other long term (current) drug therapy; Z68.33 Body mass index [BMI] 33.0-33.9, adult

== ENCOUNTER → 2020-01-22 | Outpatient (CLI) | payer OTHER ==
[~2020-01-22] VITALS: Ht 160 cm; Wt 79.5 kg
[~2020-01-22] MED LIST changes: +KLONOPIN0.5 MG PO
--- NOTE | ~2020-01-22 | HPC ---
[facility] [place] [address] PAIN MANAGEMENT CONSULTATION Name: THIAGO BUCK Room #: REG EDWIN MorganKeatonAnjana.#: [id number] Admission: 01/22/20 Attend Phys: Maximus Schmitt MD Discharge: Date of : 56 Report #: [id number] THIS REPORT FOR: cc: Andrade Olivia MD, Todd E. MD Morgan, Richard L. MD ~ CC: Maximus Olivia MD DATE OF SERVICE: 01/22/2020 Followup visit for chronic intractable pain, management of intrathecal infusion pump. Lumbar spondylosis. The patient is here today in the pain clinic for a refill of her intrathecal pump. I last saw her on 12/12/2019. There have been no significant changes in her health history. She is here basically for followup to renew her medications. She is also provided with a small amount of hydrocodone, which she uses under terms of written opioid agreement. We have reviewed her use of medicine. She is on schedule. I have also checked her prescription drug monitoring program information and there are no unexpected entries. She has had a urine drug screen within the last 24 months. I have agreed that I will continue to provide her with hydrocodone 5/325, #45 tablets to last her between refills. PQRS: Positive for osteoarthritis, mostly spondylosis of the cervical spine. Her weight is stable at 31.0. We discussed weight loss as a management tool for chronic pain. Blood pressure remains elevated. She should follow up with primary care physician, blood pressure 195/71, heart rate 72, respirations 18, O2 sat 98% on room air. She is wearing a mask for COVID restrictions. Pain intensity is 8. She has not fallen in the last 3 months, but uses a cane and is cautious in her mobility. She is on no blood thinner medication. She is hypertensive. Opioid agreement was signed in 2015 and reviewed at each visit: She scores 2 on the opioid risk tool and is considered at low risk for addiction. Functional assessment score is high and remains 53, suggesting significant impact of pain on most of her daily activities. She continues to smoke and I have counseled her each visit. She is down to about 2 cigarettes a day. PHYSICAL EXAMINATION: Her affect is pleasant. Her vital signs are as noted. Her gait is antalgic. She has tenderness across her low back. IMPRESSION: 1. Chronic intractable low back pain with multi-joint arthritis and [facility] [address] [place] [address] PAIN MANAGEMENT CONSULTATION Name: THIAGO BUCK [facility] [id number] Admission: 01/22/20 Attend Phys: Maximus Schmitt MD Discharge: Date of : 56 Report #: [id number] spondylosis. 2. Management of intrathecal infusion pump. 3. Management of high risk medications with the written opioid agreement, which we reviewed. 4. Obesity. 5. Continued use of tobacco. 6. Hypertension. PROCEDURE: Skin was prepped with ChloraPrep and a 22-gauge non-coring needle advanced in the pump. Old medication removed and discarded per protocol. Pump was then refilled with a combination of hydromorphone and bupivacaine and reprogramming session performed with no increase. She will be on hydromorphone 7.6 and bupivacaine 7.6. Refill is next scheduled for late February. A prescription for hydrocodone was sent. By: [id number] Maximus Schmitt MD /nt
[2020-01-22 10:17] VITALS: BP 195/71
--- NOTE | 2020-01-22 10:38 | NUR ---
Pain Clinic Assessment: 1. History of Osteoarthritis: neck History of Rheumatoid Arthritis: Not Applicable 2. Height: 5 ft. 3 in. 160.0 cm. Weight: 175.2 lb. oz. 79.470 kg. Patient's BMI: 31.0 3. Vital Signs: BP: 195/71 Pulse: 72 Resp: 18 Temp: 02 Sat: 98 ECG Mon: 4. Pain Intensity: 8 5. Fall Risk: Dizziness: N Needs help standing or walking: Y Fallen in the last 3 months: N Fall risk comments: USES CANE 6. Patient on Blood Thinner: None 7. History of Hypertension: Y 8. Opioid Therapy greater than 6 weeks: Y Opiate Contract Signed: 12/03/15 9. Risk Assessment Tool Provided: 2-low risk 10. Functional Assessment Tool: 11. Recreational Drug Use: Never Drug Type: Tobacco Use: Current Every Day Smoker Tobacco Type: Cigarettes Amount or Packs/day: 2 CIGS How Many Years: 46 Alcohol Use: No Frequency: Quant:
== END | disposition home or self-care (01) ==
LOC: PAIN 06:49
PROVIDERS: ATTEND Anesthesiology Pain Medicine
DX: Z45.1 Encounter for adjustment and management of infusion pump (principal); G89.29 Other chronic pain; M47.896 Other spondylosis, lumbar region; M19.90 Unspecified osteoarthritis, unspecified site; I10 Essential (primary) hypertension; F17.210 Nicotine dependence, cigarettes, uncomplicated; E66.09 Other obesity due to excess calories; Z79.891 Long term (current) use of opiate analgesic; Z98.890 Other specified postprocedural states; Z79.899 Other long term (current) drug therapy; Z68.31 Body mass index [BMI] 31.0-31.9, adult

== ENCOUNTER → 2020-03-07 | Outpatient (CLI) | payer OTHER ==
[~2020-03-07] VITALS: Ht 160 cm; Wt 80.2 kg
[~2020-03-07] MED LIST changes: +MELOXICAM7.5 MG PO
--- NOTE | ~2020-03-07 | HPC ---
[facility] [place] [address] PAIN MANAGEMENT CONSULTATION Name: THIAGO BUCK Room #: REG EDWIN AlemAnjana.#: [id number] Admission: 03/07/20 Attend Phys: Maximus Schmitt MD Discharge: Date of : 56 Report #: [id number] THIS REPORT FOR: cc: Andrade Olivia MD, Todd E. MD Morgan, Richard L. MD ~ CC: Maximus Olivia MD DATE OF SERVICE: 03/07/2020 Followup visit for chronic back pain with spondylosis and post-laminectomy syndrome. She does not have radiculopathy. HISTORY OF PRESENT ILLNESS: The patient is here today for refill of her intrathecal infusion pump. She says she is having increasing pain. Part of this may be due to the fact that she has been staying in. Due to COVID restrictions, she complains bitterly of pain across her scar in the low back. It does not radiate into her leg. Her intrathecal pump is infusing at the same rate for a number of years. I also provided with hydrocodone 5 mg to take 2-3 times a day for breakthrough. She has been on ibuprofen, but no other anti-inflammatory drugs. PQRS: Positive for osteoarthritis, spondylosis including low back and also lumbar spine. Her BMI is 31.3, blood pressure 193/97, heart rate 77, respirations 18. I have asked her to follow up with Dr. Olivia for her elevated blood pressure. Pain intensity is 8/10. She uses a cane, but has not fallen in the last 3 months. She needs help standing and walking. No blood thinners. Her hypertension noted above. She is on an opioid agreement for the additional medications I provide for her between 10 and 15 MME per day. She carefully safeguards her medicine. Her opioid risk tool score is 2. She denies use of alcohol, but continues to smoke despite many years of counseling. We discussed that briefly today. PHYSICAL EXAMINATION: GENERAL: She is pleasant. She is short and morbidly obese. She walks with antalgic features. CHEST: Clear. CARDIAC: Rhythm is regular. I could not appreciate any murmur. BACK: Very tender across her scar, mostly to the left. Straight leg raising is negative. There is no numbness, tingling, or weakness in lower extremities. IMPRESSION: 1. Chronic intractable back pain, post-laminectomy syndrome. [facility] [address] [place] [address] PAIN MANAGEMENT CONSULTATION Name: THIAGO BUCK Room #: REG CL Rosendo.#: [id number] Admission: 03/07/20 Attend Phys: Maximus Schmitt MD Discharge: Date of : 56 Report #: [id number] 2. Management of intrathecal infusion pump. 3. Management of high risk medications. 4. Morbid obesity. 5. Hypertension. Currently, very elevated and out of control. 6. Ongoing use of tobacco. PROCEDURE: Refill and reprogramming of intrathecal infusion pump. DESCRIPTION OF PROCEDURE: Skin was prepped with ChloraPrep. Skin anesthetized and a 22-gauge non-coring needle advanced in the pump. Old medication removed and discarded. We had 40 mL of medication ordered, number of our patients have 40 mL pumps. When we got to 20, I realized that the pump was not accepting more medicine and we recognize that she had a 20 mL pump. Needle was removed. The additional 20 mL of medication was wasted by the nurse per protocol under observation. I kept her an extra 30-45 minutes to make sure that she was not sleepy with the thought that perhaps there might have been some extravasation of medication at the end of the refill, although I did not exceed 20 mL. I did push a bit firmly when I reached to 20 mL as I recognized that the medication was not entering the pump. At the end of 45 minutes today in recovery room, she was fine with no changes in sensation and orientation. She was told to immediately go to the hospital and call if there are any changes over the next few hours. I find that highly unlikely at this point. Medications were renewed by prescription electronically and plan to see her back in the pain clinic for next refill in about 45 days. By: [id number] Maximus Schmitt MD /nt
[2020-03-07 10:17] VITALS: BP 193/97
--- NOTE | 2020-03-07 10:34 | NUR ---
Pain Clinic Assessment: 1. History of Osteoarthritis: neck History of Rheumatoid Arthritis: Not Applicable 2. Height: 5 ft. 3 in. 160.0 cm. Weight: 176.8 lb. oz. 80.196 kg. Patient's BMI: 31.3 3. Vital Signs: BP: 193/97 Pulse: 77 Resp: 18 Temp: 02 Sat: 100 ECG Mon: 4. Pain Intensity: 8 5. Fall Risk: Dizziness: N Needs help standing or walking: Y Fallen in the last 3 months: N Fall risk comments: USES CANE 6. Patient on Blood Thinner: None 7. History of Hypertension: Y 8. Opioid Therapy greater than 6 weeks: Y Opiate Contract Signed: 12/03/15 9. Risk Assessment Tool Provided: 2-low risk 10. Functional Assessment Tool: 11. Recreational Drug Use: Never Drug Type: Tobacco Use: Current Every Day Smoker Tobacco Type: Cigarettes Amount or Packs/day: 1-2 cig/day How Many Years: 45 Alcohol Use: No Frequency: Quant:
== END | disposition home or self-care (01) ==
LOC: PAIN 06:51
PROVIDERS: ATTEND Anesthesiology Pain Medicine
DX: M96.1 Postlaminectomy syndrome, not elsewhere classified (principal); G89.29 Other chronic pain; I10 Essential (primary) hypertension; E66.01 Morbid (severe) obesity due to excess calories; F17.210 Nicotine dependence, cigarettes, uncomplicated; Z79.899 Other long term (current) drug therapy; Z98.890 Other specified postprocedural states; Z88.8 Allergy status to other drugs, medicaments and biological substances

== ENCOUNTER → 2020-04-18 | Outpatient (CLI) | payer OTHER ==
[~2020-04-18] VITALS: Ht 160 cm; Wt 75.8 kg
--- NOTE | ~2020-04-18 | HPC ---
[facility] [place] [address] PAIN MANAGEMENT CONSULTATION Name: THIAGO BUCK Room #: REG EDWIN RobbinsKeaton#: [id number] Admission: 04/18/20 Attend Phys: Maximus Schmitt MD Discharge: Date of : 56 Report #: [id number] CC: Maximus Olivia DATE OF SERVICE: 04/18/2020 Followup visit for management of chronic pain and refill of intrathecal infusion pump. The patient returns today to refill her intrathecal infusion pump. She has chronic low back pain with spondylosis and a prior laminectomy. She is doing okay with her current medicine regimen. No adjustments are necessary. I also provided with a small amount of hydrocodone rather than a PTM device for episodes of increased pain. #90 tablets of hydrocodone 5/325 typically last somewhere between 30 and 60 days. Her last prescription was written on 03/07. She is down to just a few more tablets. I have agreed to renew that medicine for her. We have looked at her prescription drug monitoring program information and there are no unexpected entries. Her MME is 15. Prior urine drug screens have been appropriate. There are no other prescribers. She is on clonazepam tablet provided by Dr. Andrade Olivia. We have discussed the interaction between benzodiazepines and opioids. She has taken it safely at current doses and she understands that it is critical that she does not increase those doses. Her pump is in the left lower abdomen and nontender. She infuses both hydromorphone and bupivacaine on a complex infusion. PQRS is positive for spondylosis and arthritis. She has some history of hypertension, which is elevated again today at 167/67, heart rate 65, respirations 16. BMI is 31. She has not fallen, but uses a cane. She is on no blood thinners. She is on an opioid agreement for the medications as described above. She continues to smoke, but continues to try and minimize tobacco completely. She was counseled about stopping. Denies use of alcohol or any other illicit drugs. PLAN: 1. Medications were renewed under terms of our agreement. Reviewed the importance of safeguarding these medications with her. 2. Refill and reprogramming of intrathecal infusion pump. PROCEDURE: Skin prepped with ChloraPrep. A 22-gauge non-coring needle advanced in the pump. Old medication removed and discarded per protocol. Pump was then refilled with hydromorphone and bupivacaine and a reprogramming session was performed. Information was checked by myself and the nurse and copy provided to the patient. She will be receiving hydromorphone 8.1 and bupivacaine 8.1 mg per day. Next refill is scheduled for roughly 6 weeks to 8 weeks. By: [id number] Maximus Schmitt MD /nt
[2020-04-18 14:07] VITALS: BP 165/67
--- NOTE | 2020-04-18 14:11 | NUR ---
Pain Clinic Assessment: 1. History of Osteoarthritis: neck History of Rheumatoid Arthritis: Not Applicable 2. Height: 5 ft. 3 in. 160.0 cm. Weight: 167.0 lb. oz. 75.751 kg. Patient's BMI: 29.6 3. Vital Signs: BP: 165/67 Pulse: 65 Resp: 16 Temp: 02 Sat: 98 ECG Mon: 4. Pain Intensity: 8 5. Fall Risk: Dizziness: N Needs help standing or walking: N Fallen in the last 3 months: N Fall risk comments: USES CANE 6. Patient on Blood Thinner: None 7. History of Hypertension: Y 8. Opioid Therapy greater than 6 weeks: Y Opiate Contract Signed: 12/03/15 9. Risk Assessment Tool Provided: 2-low risk 10. Functional Assessment Tool: 11. Recreational Drug Use: Never Drug Type: Tobacco Use: Current Every Day Smoker Tobacco Type: Cigarettes Amount or Packs/day: 2 CIGS PER D How Many Years: Alcohol Use: No Frequency: Quant:
== END | disposition home or self-care (01) ==
LOC: PAIN 06:56
PROVIDERS: ATTEND Anesthesiology Pain Medicine
DX: Z45.1 Encounter for adjustment and management of infusion pump (principal); G89.29 Other chronic pain; I10 Essential (primary) hypertension; F17.210 Nicotine dependence, cigarettes, uncomplicated; Z98.890 Other specified postprocedural states; Z79.899 Other long term (current) drug therapy; Z79.891 Long term (current) use of opiate analgesic